=== PATIENT | female | born 1940 | race Caucasian/White ===

== ENCOUNTER → 2016-10-02 | Outpatient (CLI) | payer OTHER ==
[~2016-10-02] MED LIST: ASCA500 PO; ASPEC81 PO; BUSP-8 PO; CLTP PO; CLX20 PO; CMD25 PO; FRRG PO; LISI-461 PO; OMEG10007 PO; PRLSR20 PO; RANI300T2 PO; SIMV40TA2 PO; VITA400C15 PO
--- NOTE | 2016-10-02 11:03 | DIAGNOSTIC IMAGING REPORT ---
CHEST 2 VIEWS ROUTINE CLINICAL HISTORY: Fatigue, shortness of breath. COMPARISON STUDY: No previous studies for comparison. FINDINGS: The heart is at the upper limits of normal in size. There is mild aortic tortuosity. There is no failure. There is no focal pulmonary consolidation. There are no pleural effusions.[ IMPRESSION: No active disease in the chest. Electronically signed by: Yfian Noonan M.D. 10/02/2016 11:01 AM Dictated Date/Time: 10/02/2016 11:01 AM
== END | disposition home or self-care (01) ==
LOC: C.RAD 10:44
PROVIDERS: ATTEND Physician Assistant Medical
DX: R06.02 Shortness of breath (principal); R53.81 Other malaise; R53.83 Other fatigue

== ENCOUNTER → 2016-11-15 | Outpatient (CLI) | payer OTHER ==
--- NOTE | 2016-11-15 13:32 | MAMMOGRAPHY REPORT ---
BILATERAL DIGITAL SCREENING MAMMOGRAM WITH CAD: 11/15/2016 CLINICAL HISTORY: Routine screening. Patient has no complaints. TECHNIQUE: Bilateral CC and MLO views were obtained. Current study was also evaluated with a Compute r Aided Detection (CAD) system. COMPARISON: Comparison is made to exams dated: 11/10/2015 mammogram, 11/07/2014 mammogram, 09/18/2012 m ammogram, 09/15/2011 mammogram, 09/10/2009 mammogram - [facility], and 09/09/2008. BREAST COMPOSITION: There are scattered areas of fibroglandular density in both breasts. FINDINGS: A linear scar marker overlies the left upper outer quadrant. There are scattered and group ed faint punctate microcalcifications throughout the right breast, that a been stable on prior mammog sebastian dating back to at least 09/10/2009, therefore likely benign. No new suspicious mass, architectu ral distortion or cluster of suspicious microcalcifications is seen. IMPRESSION: ACR BI-RADS CATEGORY 1: NEGATIVE There is no mammographic evidence of malignancy. A 1 year screening mammogram is recommended. The pa tient will receive written notification of the results. Approximately 10% of breast cancers are not detected with mammography. A negative mammographic report should not delay biopsy if a clinically suggestive mass is present. Blanca Vásquez M.D. ay/:11/15/2016 12:46:50 [employer]: Lia Gibbons, [facility] letter sent: Normal 1/2 BI-RADS Code: ACR BI-RADS Category 1: Negative
== END | disposition home or self-care (01) ==
LOC: C.MAMM 11:18
PROVIDERS: ATTEND Family Medicine
DX: Z12.31 Encounter for screening mammogram for malignant neoplasm of breast (principal)

== ENCOUNTER 2022-04-03 10:45 | Inpatient (IN) ==
--- NOTE | 2022-04-03 10:57 | Emergency Department Note ---
Impression & Plan Altered mental status, Hypertension, Encephalopathy acute, Slurred speech ED Provider Note Name: RICHARD PEDRAZA Age: 81 Sex: F Arrives Via: Ambulance Informant: Family/EMS ED Provider: Mendez Dey MD Chief Complaint: Stroke Symptoms Impression: As Per Impressions above Medical Decision Makin-year-old female arrives for evaluation of confusion and slurred speech. Patient has a history of COPD, hypertension, anxiety/depression, GERD, DLP. Patient initially was reported to have a last known well 9:30 AM. However after multiple discussions with primary family contacts it appears she has been confused since at least not last night if not gradually worsening over the last week. At this point it was felt that she is not a TNKase candidate. On examination she had does have slurred speech she is confused but she has no other neurologic deficits. Patient essentially seems a bit encephalopathic. Her blood pressure is not significantly elevated point where she requires emergent lowering given its essentially staying in the 170s over 90s periodically going higher than periodically going lower. She was mildly hypoxic on room air I wonder if this may be slight aspiration though chest x-ray is unremarkable. COVID flu is negative. CT of the head with angio of the head and neck are negative. Labs are unremarkable there is no clear evidence of infectious etiology. I do not feel that LP is indicated this time as she exhibits no meningeal signs by examination. I do not a clear etiology of this encephalopathy. That said patient is maintaining airway she is looking around the room otherwise stable. I discussed the case with the hospitalist who evaluated further and bring her in for further management. Prior Medical Record and Triage/Nursing Notes reviewed by Me Additional history obtained from chart and family Differentials:Infection, hypoglycemia, electrolyte abnormalities, overdose, toxicologic, cardiac sources, intracerebral event, neurologic, trauma, as well as other pathologies. Vital Signs: reviewed and remarkable for hypertension, hypoxia Interventions: zofran 4mg iv Labs:Reviewed and remarkable for no significant abnormalities Imagin view chest x-ray no acute findings as per radiology. CT of the head without and CT angio of the head and neck as per radiology no acute findings. EKG:Per My Interpretation: Indication Weakness: NSR 68 bpm, qtc 497. No Ectopy. No Ischemia. Compared to EKG 09/11/18, no significant changes. Consults:Dr Sadi Fernandes Neuro - brief discussion though given info that had been obtained before call back stroke alert cancelled. Dr Theresa BARNHART Hospitalist Plan: Disposition:Hospitalization. Condition: Fair History of Present Illness:81-year-old female arrives for evaluation of confusion. Patient last known well probably several days ago but at least was definitively confused this morning. Her sister had been on the phone with around 9:00 and due to the severe confusion she called 911. Patient according to the son is just not been her normal self last few days as it is. He is unsure of any falls or injuries other than some falls a few months ago. Patient was stopped her blood pressure meds a few weeks ago because of reported falls. No medications prior to arrival. EMS notes she was hypertensive. Patient had a blood sugar 106 for EMS. ROS: Unable to obtain due to patient confusion Past Medical History:COPD, hypertension, anxiety/depression, GERD, dyslipidemia Past Surgical History:See Below Family History:See Below Social History:See Below Home Medications:See Below Allergies:See Below Vitals:Blood Pressure: 175/94, Pulse 70, RR 16, T 36.8C, O2 98% on RA Physical Exam: GENERAL: Patient is confused appearing and in minimal distress. EYES: No scleral icterus, unremarkable pupils. ENT: Mucous membranes moist, no nasal congestion. NECK: No masses appreciated, nomeningismus, trachea is midline. RESPIRATORY: No dyspnea. Clear to auscultation and equal bilaterally. No wheeze, no rhonchi. CARDIOVASCULAR: Regular rate and rhythm.No murmurs, rubs, gallops appreciated. GASTROINTESTINAL: Abdomen soft, non-tender, no peritonitis.Bowel sounds positive.No masses appreciated. BACK: No midline tenderness, no CVA tenderness EXTREMITIES: Normal motion all extremities, no cyanosis, no edema. NEUROLOGIC: Confused, looking around room, unintelligible speech, no acute motor or sensory deficits, no focal weakness, cranial nerves grossly intact. SKIN: No rash, no jaundice, no diaphoresis. ED Course: Times/Reassessments: 10:35am: EMS call and stroke alert was activated following this. 10:40am: I discussed case at the phone loose with the patient's daughter who notes that she was not involved but was on her way to the hospital. 10:44am: Patient arrived via EMS and taken directly to CAT scan 10:45 AM I discussed the case with Divya patient's sister who notes that patient was confused when she had called her at 9 AM. I rediscussed the case at 10:50 AM after having lost connection via the phone. 10:50 AM decision not to give TNKase given patient has clearly been outside the window at this point. 10:52 AM discussed the case with Matrín the patient's son who notes she is actually been a bit confused over the last few days if not last week. 10:[address] Avitia called of [place] [facility] and given the ongoing confusion for over 12 to 24 hours no focal neurologic deficits she would not be a tPA candidate nor do I feel she is a large vessel occlusion. Critical Care: I have personally spent 35 minutes of critical care time in the direct management of this patient. Acute stroke alert for slurred speech and activation of stroke team with consideration and eventual determination not to give thrombolytic. This was a life/limb threatening event. This 35 minutes is in excess of all separately billable procedures. 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 GERD (gastroesophageal reflux disease) Hyperlipemia Hypertension Osteoarthritis Osteopenia Surgical History History of arthroscopy of right shoulder History of benign breast biopsy History of cardiac cath > 10 YEARS AGO - [facility] - ABN STRESS TEST - NO STENTS/ANGIOPLASTY History of cataract surgery Bilateral History of colonoscopy History of esophagogastroduodenoscopy (EGD) History of tonsillectomy History of tooth extraction History of total abdominal hysterectomy and bilateral salpingo-oophorectomy History of total hip arthroplasty LT Family History Mother Myocardial infarction Father Emphysema/COPD Other No family history of adverse response to anesthesia No pertinent family history Social History Smoking Status: Former smoker Second Hand Exposure: Yes (as a child); Hx Alcohol Use: Yes Alcohol type: wine Hx Substance Use: No Preferred Language: Georgian Communication Ability: Effective Box Sorter Required: No Beliefs That Will Affect Care: None Current Living Situation: Alone Feels Safe at Home: Yes Assistive Devices: Denture - Lower and Glasses Allergies Allergies Allergy/AdvReac Type Severity Reaction Status Date / Time clarithromycin Allergy Intermediate HIVES Verified 01/17/22 14:59 Penicillins Allergy Intermediate HANDS Verified 01/17/22 14:59 SWELLING lisinopril Allergy Mild Unknown Verified 01/17/22 14:59 Home Meds Home Medications Medication Instructions Recorded Confirmed amlodipine 2.5 mg tablet 2.5 mg PO QPM 07/23/18 04/03/22 citalopram 10 mg tablet 10 mg PO QAM 07/23/18 04/03/22 omeprazole 20 mg tablet,delayed 20 mg PO QAM 07/23/18 04/03/22 release simvastatin 20 mg tablet 40 mg PO PM 07/23/18 04/03/22 Previous Rx's Medication Instructions Recorded fluticasone propionate 50 1 spray intranasal DAILY #3 BTLS 11/24/21 mcg/actuation nasal spray,suspension (Allergy Relief (fluticasone)) levocetirizine 5 mg tablet 5 mg PO DAILY PRN allergy symptoms 11/24/21 #90 tabs umeclidinium 62.5 mcg-vilanterol 1 inh inhalation DAILY #3 Inhalers 11/24/21 25 mcg/actuation powdr for inhalation (Anoro Ellipta) Flutter Valve #1 ea 01/17/22 albuterol sulfate 90 mcg/actuation 2 puff inhalation Q6H PRN 01/17/22 aerosol inhaler Shortness Of Breath Or Wheezing #18 grams guaifenesin 600 mg tablet, 600 mg PO BID PRN congestion #60 01/17/22 extended release 12 hr (Mucinex) tabs Results & Data (ED) Vital Signs Vital Signs - 24 hr 04/03/22 11:05 04/03/22 11:47 Temperature 36.8 C Temperature Source Temporal Artery Scan Pulse Rate 66 Pulse Rate [Apical] 62 Respiratory Rate 18 18 Blood Pressure 180/83 H Blood Pressure [Left Arm] 177/90 H Blood Pressure Mean 115 Blood Pressure Mean [Left Arm] 119 Pulse Oximetry 98 89 L Oxygen Delivery Method Room Air Room Air Sepsis Recent Fever Within 48 Hours No Sepsis New/Unexplained Change in Mental Status Yes Sepsis Action Taken by Nursing No Action Required Laboratory Data Result diagrams: 04/03/22 10:58 04/03/22 10:58 Lab Results 04/03/22 04/03/22 04/03/22 Range/Units 10:58 10:58 10:58 WBC 6.46 (4.8-10.8) K/ul RBC 3.94 (3.93-5.22) M/uL Hgb 11.6 L (12.0-16.0) g/dl Hct 33.8 L (34.1-44.9) % MCV 85.8 (80.0-100.0) fL MCH 29.4 (25.0-34.0) pg MCHC 34.3 (32.0-36.0) g/dL RDW Std Deviation 40.6 (36.4-46.3) fL RDW Coeff of Elliott 13.0 (11.5-14.5) % Plt Count 266 (130-400) K/uL MPV 8.8 L (9.4-12.3) fL Immature Gran % (Auto) 0.3 % Neut % (Auto) 47.1 % Lymph % (Auto) 39.6 % [place] % (Auto) 11.1 % Eos % (Auto) 1.1 % Baso % (Auto) 0.8 % Neut # (Auto) 3.04 (1.4-6.5) K/uL Lymph # (Auto) 2.56 (1.2-3.4) K/uL [place] # (Auto) 0.72 (0.24-0.82) K/uL Eos # (Auto) 0.07 (0-0.50) K/uL Baso # (Auto) 0.05 (0-0.2) K/uL Immature Gran # (Auto) 0.02 (0.00-0.02) K/uL ESR (0-30) mm/hr PT 12.3 H (9.0-12.0) Seconds INR 1.2 H (0.9-1.1) APTT 25.1 (21.0-31.0) Seconds PTT Ratio 0.9 Sodium (136-145) mmol/L Potassium (3.5-5.1) mmol/L Chloride (98-107) mmol/L Carbon Dioxide (21-32) mmol/L Anion Gap (3-11) BUN (6-23) mg/dl Creatinine (0.6-1.2) mg/dl Est Cr Clr Drug Dosing ml/min Est GFR ( Amer) ml/min Est GFR (Non-Af Amer) ml/min BUN/Creatinine Ratio (10-20) Glucose (70-99(Fasting)) mg/dl Calcium (8.5-10.1) mg/dl Ionized Calcium (1.12-1.32) mmol/L Magnesium (1.7-2.4) mg/dl Total Bilirubin (0.2-1.0) mg/dl AST (13-39) U/L ALT (7-52) U/L Alkaline Phosphatase (34-104) U/L Troponin I High Sens (0-14) pg/ml C-Reactive Protein (0-0.5) mg/dl Total Protein (6.0-8.3) gm/dl Albumin (3.4-5.0) gm/dl Globulin (2.5-4.0) gm/dl Albumin/Globulin Ratio (0.9-2) Lipase (11-82) U/L Procalcitonin (0-0.5) ng/ml Urine Color Urine Appearance (Clear) Urine pH (4.5-7.5) Ur Specific [place] (1.000-1.030) Urine Protein (Negative) Urine Glucose (UA) (Negative) Urine Ketones (Negative) Urine Blood (Negative) Urine Nitrite (Negative) Urine Bilirubin (Negative) Urine Urobilinogen (Negative) Ur Leukocyte Esterase (Negative) SARS-CoV-2 (PCR) (Negative) Influenza Type A (PCR) (Neg) Influenza Type B (PCR) (Neg) RSV (RT-PCR) (Neg) Blood Type A Positive Antibody Screen NEGATIVE 04/03/22 04/03/22 04/03/22 Range/Units 10:58 10:58 10:58 WBC (4.8-10.8) K/ul RBC (3.93-5.22) M/uL Hgb (12.0-16.0) g/dl Hct (34.1-44.9) % MCV (80.0-100.0) fL MCH (25.0-34.0) pg MCHC (32.0-36.0) g/dL RDW Std Deviation (36.4-46.3) fL RDW Coeff of Elliott (11.5-14.5) % Plt Count (130-400) K/uL MPV (9.4-12.3) fL Immature Gran % (Auto) % Neut % (Auto) % Lymph % (Auto) % [place] % (Auto) % Eos % (Auto) % Baso % (Auto) % Neut # (Auto) (1.4-6.5) K/uL Lymph # (Auto) (1.2-3.4) K/uL [place] # (Auto) (0.24-0.82) K/uL Eos # (Auto) (0-0.50) K/uL Baso # (Auto) (0-0.2) K/uL Immature Gran # (Auto) (0.00-0.02) K/uL ESR (0-30) mm/hr PT (9.0-12.0) Seconds INR (0.9-1.1) APTT (21.0-31.0) Seconds PTT Ratio Sodium 137 (136-145) mmol/L Potassium 3.3 L (3.5-5.1) mmol/L Chloride 105 (98-107) mmol/L Carbon Dioxide 23 (21-32) mmol/L Anion Gap 9 (3-11) BUN 9 (6-23) mg/dl Creatinine 0.74 (0.6-1.2) mg/dl Est Cr Clr Drug Dosing 63.4 ml/min Est GFR ( Amer) 89.3 ml/min Est GFR (Non-Af Amer) 77.1 ml/min BUN/Creatinine Ratio 12.2 (10-20) Glucose 94 (70-99(Fasting)) mg/dl Calcium 8.2 L (8.5-10.1) mg/dl Ionized Calcium (1.12-1.32) mmol/L Magnesium 1.4 L (1.7-2.4) mg/dl Total Bilirubin 0.7 (0.2-1.0) mg/dl AST 15 (13-39) U/L ALT 9 (7-52) U/L Alkaline Phosphatase 49 (34-104) U/L Troponin I High Sens 5.3 (0-14) pg/ml C-Reactive Protein (0-0.5) mg/dl Total Protein 5.7 L (6.0-8.3) gm/dl Albumin 3.7 (3.4-5.0) gm/dl Globulin 2.0 L (2.5-4.0) gm/dl Albumin/Globulin Ratio 1.9 (0.9-2) Lipase 13 (11-82) U/L Procalcitonin < 0.05 (0-0.5) ng/ml Urine Color Urine Appearance (Clear) Urine pH (4.5-7.5) Ur Specific [place] (1.000-1.030) Urine Protein (Negative) Urine Glucose (UA) (Negative) Urine Ketones (Negative) Urine Blood (Negative) Urine Nitrite (Negative) Urine Bilirubin (Negative) Urine Urobilinogen (Negative) Ur Leukocyte Esterase (Negative) SARS-CoV-2 (PCR) (Negative) Influenza Type A (PCR) (Neg) Influenza Type B (PCR) (Neg) RSV (RT-PCR) (Neg) Blood Type Antibody Screen 04/03/22 04/03/22 04/03/22 Range/Units 10:58 11:20 11:40 WBC (4.8-10.8) K/ul RBC (3.93-5.22) M/uL Hgb (12.0-16.0) g/dl Hct (34.1-44.9) % MCV (80.0-100.0) fL MCH (25.0-34.0) pg MCHC (32.0-36.0) g/dL RDW Std Deviation (36.4-46.3) fL RDW Coeff of Elliott (11.5-14.5) % Plt Count (130-400) K/uL MPV (9.4-12.3) fL Immature Gran % (Auto) % Neut % (Auto) % Lymph % (Auto) % [place] % (Auto) % Eos % (Auto) % Baso % (Auto) % Neut # (Auto) (1.4-6.5) K/uL Lymph # (Auto) (1.2-3.4) K/uL [place] # (Auto) (0.24-0.82) K/uL Eos # (Auto) (0-0.50) K/uL Baso # (Auto) (0-0.2) K/uL Immature Gran # (Auto) (0.00-0.02) K/uL ESR 5 (0-30) mm/hr PT (9.0-12.0) Seconds INR (0.9-1.1) APTT (21.0-31.0) Seconds PTT Ratio Sodium (136-145) mmol/L Potassium (3.5-5.1) mmol/L Chloride (98-107) mmol/L Carbon Dioxide (21-32) mmol/L Anion Gap (3-11) BUN (6-23) mg/dl Creatinine (0.6-1.2) mg/dl Est Cr Clr Drug Dosing ml/min Est GFR ( Amer) ml/min Est GFR (Non-Af Amer) ml/min BUN/Creatinine Ratio (10-20) Glucose (70-99(Fasting)) mg/dl Calcium (8.5-10.1) mg/dl Ionized Calcium (1.12-1.32) mmol/L Magnesium (1.7-2.4) mg/dl Total Bilirubin (0.2-1.0) mg/dl AST (13-39) U/L ALT (7-52) U/L Alkaline Phosphatase (34-104) U/L Troponin I High Sens (0-14) pg/ml C-Reactive Protein (0-0.5) mg/dl Total Protein (6.0-8.3) gm/dl Albumin (3.4-5.0) gm/dl Globulin (2.5-4.0) gm/dl Albumin/Globulin Ratio (0.9-2) Lipase (11-82) U/L Procalcitonin (0-0.5) ng/ml Urine Color Yellow Urine Appearance Clear (Clear) Urine pH 7.0 (4.5-7.5) Ur Specific [place] 1.023 (1.000-1.030) Urine Protein Negative (Negative) Urine Glucose (UA) Negative (Negative) Urine Ketones Negative (Negative) Urine Blood Negative (Negative) Urine Nitrite Negative (Negative) Urine Bilirubin Negative (Negative) Urine Urobilinogen Negative (Negative) Ur Leukocyte Esterase Negative (Negative) SARS-CoV-2 (PCR) NEGATIVE (Negative) Influenza Type A (PCR) Negative (Neg) Influenza Type B (PCR) Negative (Neg) RSV (RT-PCR) Negative (Neg) Blood Type Antibody Screen 04/03/22 04/03/22 Range/Units 12:40 13:11 WBC (4.8-10.8) K/ul RBC (3.93-5.22) M/uL Hgb (12.0-16.0) g/dl Hct (34.1-44.9) % MCV (80.0-100.0) fL MCH (25.0-34.0) pg MCHC (32.0-36.0) g/dL RDW Std Deviation (36.4-46.3) fL RDW Coeff of Elliott (11.5-14.5) % Plt Count (130-400) K/uL MPV (9.4-12.3) fL Immature Gran % (Auto) % Neut % (Auto) % Lymph % (Auto) % [place] % (Auto) % Eos % (Auto) % Baso % (Auto) % Neut # (Auto) (1.4-6.5) K/uL Lymph # (Auto) (1.2-3.4) K/uL [place] # (Auto) (0.24-0.82) K/uL Eos # (Auto) (0-0.50) K/uL Baso # (Auto) (0-0.2) K/uL Immature Gran # (Auto) (0.00-0.02) K/uL ESR (0-30) mm/hr PT (9.0-12.0) Seconds INR (0.9-1.1) APTT (21.0-31.0) Seconds PTT Ratio Sodium (136-145) mmol/L Potassium (3.5-5.1) mmol/L Chloride (98-107) mmol/L Carbon Dioxide (21-32) mmol/L Anion Gap (3-11) BUN (6-23) mg/dl Creatinine (0.6-1.2) mg/dl Est Cr Clr Drug Dosing ml/min Est GFR ( Amer) ml/min Est GFR (Non-Af Amer) ml/min BUN/Creatinine Ratio (10-20) Glucose (70-99(Fasting)) mg/dl Calcium (8.5-10.1) mg/dl Ionized Calcium 1.17 (1.12-1.32) mmol/L Magnesium (1.7-2.4) mg/dl Total Bilirubin (0.2-1.0) mg/dl AST (13-39) U/L ALT (7-52) U/L Alkaline Phosphatase (34-104) U/L Troponin I High Sens (0-14) pg/ml C-Reactive Protein < 0.50 (0-0.5) mg/dl Total Protein (6.0-8.3) gm/dl Albumin (3.4-5.0) gm/dl Globulin (2.5-4.0) gm/dl Albumin/Globulin Ratio (0.9-2) Lipase (11-82) U/L Procalcitonin (0-0.5) ng/ml Urine Color Urine Appearance (Clear) Urine pH (4.5-7.5) Ur Specific [place] (1.000-1.030) Urine Protein (Negative) Urine Glucose (UA) (Negative) Urine Ketones (Negative) Urine Blood (Negative) Urine Nitrite (Negative) Urine Bilirubin (Negative) Urine Urobilinogen (Negative) Ur Leukocyte Esterase (Negative) SARS-CoV-2 (PCR) (Negative) Influenza Type A (PCR) (Neg) Influenza Type B (PCR) (Neg) RSV (RT-PCR) (Neg) Blood Type Antibody Screen Administered Medications Discontinued Medications Magnesium Sulfate/Dextrose (Magnesium Sulfate / D5w) 1 gm in 100 mls @ 100 mls/hr IV NOW STA Stop: 04/03/22 12:35 Last Infusion: 04/03/22 12:45 Dose: 0 mls/hr Documented By: Admin: 04/03/22 11:45 Dose: 100 mls/hr Documented By: DEBRA Ioversol (Optiray 320 500ml) 120 ml IV ONCE ONE Stop: 04/03/22 11:01 Last Admin: 04/03/22 11:00 Dose: 120 ml Documented By: PRIYANKA Ondansetron HCl (Ondansetron Inj 2 Mg/Ml 2 Ml Vial) 4 mg IV NOW STA Stop: 04/03/22 11:07 Last Admin: 04/03/22 11:12 Dose: 4 mg Documented By: DEBRA Imaging Data Radiologist's Impression: Head CT 04/03/22 10:38 CT head/brain wo con CLINICAL HISTORY: 81 years-old Female with neuro deficit, acute stroke suspected. Acute strokelike symptoms TECHNIQUE: Multiple axial CT images of the head were obtained without contrast. A dose lowering technique was utilized adhering to the principles of ALARA. COMPARISON: CTA head and neck of same day, head CT 02/07/2022 FINDINGS: No acute intracranial hemorrhage, midline shift, intracranial mass, hydrocep halus, territorial ischemia or abnormal extra-axial collection. Involutional changes with ex vacuo ventriculomegaly. Cerebral vascular calcifications. White matter hypodensities suggestive of chronic microvascular ischemic disease. The calvarium is intact. Small left mastoid effusion. Right mastoid air cells and paranasal sinuses are clear. Unremarkable soft tissues. Prior bilateral lens repair. IMPRESSION: No acute intracranial abnormality. ACT 112: Negative or not required by law. The above report was generated using voice recognition software. It may contain grammatical, syntax or spelling errors. Electronically signed by: Surendra Barriga M.D. 04/03/2022 11:07 AM Head CTA 04/03/22 10:38 CT angio head w con, CT angio neck with con CLINICAL HISTORY: 81 years-old Female with neuro deficit, acute stroke lin spected. Acute strokelike symptoms COMPARISON STUDY: Head CT of same day TECHNIQUE: Following the IV administration of 120 cc of Optiray, CT angiogram of the head and neck was performed from the aortic arch to the skull apex. Images are reviewed in the axial, sagittal, and coronal planes. 3-D MIPS images are created and assessed. IV contrast was administered without complication. All measurements were obtained according to NASCET criteria. A dose lowering technique was utilized adhering to the principles of ALARA. CT DOSE: 1142.79 mGy.cm FINDINGS: Atherosclerosis of the thoracic aorta. There is patency of the innominate and imaged subclavian arteries. The common carotid arteries are w idely patent. Motion degraded exam. Mild atherosclerotic plaque of the carotid bulbs without significant stenosis. Additional atherosclerotic plaque is noted within the cavernous and clinoid segments of the internal carotid arteries without high-grade narrowing. The middle and anterior cerebral arteries are patent. Dominant right vertebral artery. Markedly diminutive left vertebral artery. No definite flow identified within the 1 segment of the majority of the V2 segment. Patent AV 3 and V4 segments. Basilar and posterior cerebral arteries are patent. origin of the right posterior cerebral artery. There is mild multifocal luminal narrowing of the posterior cerebral arteries. The cerebral venous sinuses are suboptimally evaluated, likely secondary to contrast bolus timing. Heterogeneity within the cerebral venous sinuses may be secondary to mixing artifact. No abnormal intracranial enhancement. No pneumothorax. Unremarkable soft tissues. Degenerative changes of the cervical spine. IMPRESSION: Unremarkable CTA of the head and neck. No aneurysm, dissection, high-grade stenosis or arterial occlusion identified. ACT 112: Negative or not required by law. The above report was generated using voice recognition software. It may contain grammatical, syntax or spelling errors. Electronically signed by: Surendra Barriga M.D. 04/03/2022 11:07 AM Neck CTA 04/03/22 10:38 CT angio head w con, CT angio neck with con CLINICAL HISTORY: 81 years-old Female with neuro deficit, acute stroke suspe cted. Acute strokelike symptoms COMPARISON STUDY: Head CT of same day TECHNIQUE: Following the IV administration of 120 cc of Optiray, CT angiogram of the head and neck was performed from the aortic arch to the skull apex. Images are reviewed in the axial, sagittal, and coronal planes. 3-D MIPS images are created and assessed. IV contrast was administered without complication. All measurements were obtained according to NASCET criteria. A dose lowering technique was utilized adhering to the principles of ALARA. CT DOSE: 1142.79 mGy.cm FINDINGS: Atherosclerosis of the thoracic aorta. There is patency of the innominate and imaged subclavian arteries. The common carotid arteries are wide ly patent. Motion degraded exam. Mild atherosclerotic plaque of the carotid bulbs without significant stenosis. Additional atherosclerotic plaque is noted within the cavernous and clinoid segments of the internal carotid arteries without high-grade narrowing. The middle and anterior cerebral arteries are patent. Dominant right vertebral artery. Markedly diminutive left vertebral artery. No definite flow identified within the 1 segment of the majority of the V2 segment. Patent AV 3 and V4 segments. Basilar and posterior cerebral arteries are patent. origin of the right posterior cerebral artery. There is mild multifocal luminal narrowing of the posterior cerebral arteries. The cerebral venous sinuses are suboptimally evaluated, likely secondary to contrast bolus timing. Heterogeneity within the cerebral venous sinuses may be secondary to mixing artifact. No abnormal intracranial enhancement. No pneumothorax. Unremarkable soft tissues. Degenerative changes of the cervical spine. IMPRESSION: Unremarkable CTA of the head and neck. No aneurysm, dissection, high-grade stenosis or arterial occlusion identified. ACT 112: Negative or not required by law. The above report was generated using voice recognition software. It may contain grammatical, syntax or spelling errors. Electronically signed by: Surendra Barriga M.D. 04/03/2022 11:07 AM Chest X-Ray 04/03/22 11:23 XR chest 1V portable HISTORY: 81 years-old Female Confusion, vomiting acute chest pain with nausea and vomiting COMPARISON: 01/28/2022 TECHNIQUE: AP view of the chest FINDINGS: Cardiac silhouette is enlarged. Mild right hemidiaphragmatic elevation. There is no pneumothorax, pleural effusion, airspace consolidation or overt pulmonary edema. Degenerative changes of the shoulders and 9. IMPRESSION: No acute process. ACT 112: Negative or not required by law. The above report was generated using voice recognition software. It may contain grammatical, syntax or spelling errors. Electronically signed by: Surendra Barriga M.D. 04/03/2022 11:55 AM Discharge Plan Visit Data Chief Complaint: Stroke Alert Stated Complaint: STROKE SX ED Provider: Mendez Dey Discharge Problem: Altered mental status, Hypertension, Encephalopathy acute, Slurred speech Forms Stand Alone Forms: [facility] [employer] Prescriptions Prescriptions: No Action fluticasone propionate [Allergy Relief (fluticasone)] 50 mcg/actuation spray,suspension 1 spray intranasal DAILY Qty: 3 1RF Rx Instructions: administer into each nostril once daily levocetirizine 5 mg tablet 5 mg PO DAILY PRN (Reason: allergy symptoms) Qty: 90 1RF Rx Instructions: Take daily for 10 days then PRN Anoro Ellipta 62.5-25 mcg/actuation blister with device 1 inh inhalation DAILY Qty: 3 1RF albuterol sulfate 90 mcg/actuation HFA aerosol inhaler 2 puff inhalation Q6H PRN (Reason: Shortness Of Breath Or Wheezing) Qty: 18 3RF (DME) Flutter Valve Device See Rx Instructions .MEDSUPPLY Qty: 1 0RF Rx Instructions: Use it every 6 hours when awake. guaifenesin [Mucinex] 600 mg tablet extended release 12hr 600 mg PO BID PRN (Reason: congestion) Qty: 60 1RF Rx Instructions: Take 1 tab p.o. twice a day for 7 days and then as needed citalopram 10 mg Tablet 10 mg PO QAM amlodipine 2.5 mg Tablet 2.5 mg PO QPM simvastatin 20 mg Tablet 40 mg PO PM omeprazole 20 mg Tablet,Delayed Release (Dr/Ec) 20 mg PO QAM Referrals Referrals: Inge Ibarra DO [Resident] - : Altered mental status Qualifiers: Altered mental status type: unspecified Qualified Code(s): R41.82 - Altered mental status, unspecified Hypertension Qualifiers: Hypertension type: unspecified Qualified Code(s): I10 - Essential (primary) hypertension
[2022-04-03] MEDS ORDERED: OPTIRAY 320 500ml IV ONE (11:00)
[2022-04-03] MEDS ORDERED: ONDANSETRON INJ 2 MG/ML 2 ML VIAL IV STA (11:06)
--- NOTE | 2022-04-03 11:08 | CT Scan Report ---
CT angio head w con, CT angio neck with con CLINICAL HISTORY: 81 years-old Female with neuro deficit, acute stroke suspected. Acute strokelike symptoms COMPARISON STUDY: Head CT of same day TECHNIQUE: Following the IV administration of 120 cc of Optiray, CT angiogram of the head and neck wa s performed from the aortic arch to the skull apex. Images are reviewed in the axial, sagittal, and c oronal planes. 3-D MIPS images are created and assessed. IV contrast was administered without complic ation. All measurements were obtained according to NASCET criteria. A dose lowering technique was uti lized adhering to the principles of ALARA. CT DOSE: 1142.79 mGy.cm FINDINGS: Atherosclerosis of the thoracic aorta. There is patency of the innominate and imaged subcla vian arteries. The common carotid arteries are widely patent. Motion degraded exam. Mild atherosclero tic plaque of the carotid bulbs without significant stenosis. Additional atherosclerotic plaque is no keon within the cavernous and clinoid segments of the internal carotid arteries without high-grade monster rowing. The middle and anterior cerebral arteries are patent. Dominant right vertebral artery. Marked ly diminutive left vertebral artery. No definite flow identified within the 1 segment of the majority of the V2 segment. Patent AV 3 and V4 segments. Basilar and posterior cerebral arteries are patent. origin of the right posterior cerebral artery. There is mild multifocal luminal narrowing of th e posterior cerebral arteries. The cerebral venous sinuses are suboptimally evaluated, likely seconda ry to contrast bolus timing. Heterogeneity within the cerebral venous sinuses may be secondary to mix ing artifact. No abnormal intracranial enhancement. No pneumothorax. Unremarkable soft tissues. Degenerative changes of the cervical spine. IMPRESSION: Unremarkable CTA of the head and neck. No aneurysm, dissection, high-grade stenosis or ar terial occlusion identified. ACT 112: Negative or not required by law. The above report was generated using voice recognition software. It may contain grammatical, syntax o r spelling errors. Electronically signed by: Surendra Barriga M.D. 04/03/2022 11:07 AM
--- NOTE | 2022-04-03 11:08 | CT Scan Report ---
CT head/brain wo con CLINICAL HISTORY: 81 years-old Female with neuro deficit, acute stroke suspected. Acute strokelike s ymptoms TECHNIQUE: Multiple axial CT images of the head were obtained without contrast. A dose lowering tech nique was utilized adhering to the principles of ALARA. COMPARISON: CTA head and neck of same day, head CT 02/07/2022 FINDINGS: No acute intracranial hemorrhage, midline shift, intracranial mass, hydrocephalus, territorial ischem ia or abnormal extra-axial collection. Involutional changes with ex vacuo ventriculomegaly. Cerebral vascular calcifications. White matter hypodensities suggestive of chronic microvascular ischemic dise ase. The calvarium is intact. Small left mastoid effusion. Right mastoid air cells and paranasal sinuses are clear. Unremarkable soft tissues. Prior bilateral lens repair. IMPRESSION: No acute intracranial abnormality. ACT 112: Negative or not required by law. The above report was generated using voice recognition software. It may contain grammatical, syntax o r spelling errors. Electronically signed by: Surendra Barriga M.D. 04/03/2022 11:07 AM
[2022-04-03 11:09] LABS: Basophils # (auto) 0.05 K/uL (0-0.2); Basophils % (auto) 0.8 %; Eosinophils # (auto) 0.07 K/uL (0-0.50); Eosinophils % (auto) 1.1 %; Hematocrit (blood only) 33.8 % (34.1-44.9); Hemoglobin 11.6 g/dl (12.0-16.0); Immature Granulocytes # (auto) 0.02 K/uL (0.00-0.02); Immature Granulocytes % (auto) 0.3 %; Lymphocytes # (auto) 2.56 K/uL (1.2-3.4); Lymphocytes % (auto) 39.6 %; Mean Corpuscular Hemoglobin 29.4 pg (25.0-34.0); Mean Corpuscular Hgb Conc 34.3 g/dL (32.0-36.0); Mean Corpuscular Volume 85.8 fL (80.0-100.0); Mean Platelet Volume 8.8 fL (9.4-12.3); Monocytes # (auto) 0.72 K/uL (0.24-0.82); Monocytes % (auto) 11.1 %; Neutrophils # (auto) 3.04 K/uL (1.4-6.5); Neutrophils % (auto) 47.1 %; Platelet Count 266 K/uL (130-400); RDW Standard Deviation 40.6 fL (36.4-46.3); Red Blood Count 3.94 M/uL (3.93-5.22); White Blood Count 6.46 K/ul (4.8-10.8)
[2022-04-03 11:21] LABS: INR 1.2 (0.9-1.1); Partial Thromboplastin Ratio 0.9; Partial Thromboplastin Time 25.1 Seconds (21.0-31.0); Prothrombin Time 12.3 Seconds (9.0-12.0)
[2022-04-03 11:29] LABS: Appearance Urine Clear (Clear); Bilirubin Urine Negative (Negative); Blood Urine Negative (Negative); Color Urine Yellow; Glucose Urine UA Negative (Negative); Ketones Urine Negative (Negative); Leukocyte Esterase Urine Negative (Negative); Nitrite Urine Negative (Negative); Protein Urine Negative (Negative); Specific Gravity Urine 1.023 (1.000-1.030); Urobilinogen Urine Negative (Negative)
[2022-04-03 11:31] LABS: Albumin Globulin Ratio 1.9 (0.9-2); Albumin Level 3.7 gm/dl (3.4-5.0); BUN Creatinine Ratio 12.2 (10-20); Bilirubin,Total 0.7 mg/dl (0.2-1.0); Calcium 8.2 mg/dl (8.5-10.1); Creatinine Clr Calc Pharmacy 63.4 ml/min; Est GFR (African American) 89.3 ml/min; Est GFR (Non-African American) 77.1 ml/min; Magnesium 1.4 mg/dl (1.7-2.4); Potassium 3.3 mmol/L (3.5-5.1); Total Protein 5.7 gm/dl (6.0-8.3)
[2022-04-03 11:36] LABS: Troponin I High Sensitivity 5.3 pg/ml (0-14)
[2022-04-03] MEDS ORDERED: MAGNESIUM SULFATE / D5W 1 GM/100 ML BAG IV STA (11:36)
--- NOTE | 2022-04-03 11:57 | XRay Report ---
XR chest 1V portable HISTORY: 81 years-old Female Confusion, vomiting acute chest pain with nausea and vomiting COMPARISON: 01/28/2022 TECHNIQUE: AP view of the chest FINDINGS: Cardiac silhouette is enlarged. Mild right hemidiaphragmatic elevation. There is no pneumothorax, ple ural effusion, airspace consolidation or overt pulmonary edema. Degenerative changes of the shoulders and 9. IMPRESSION: No acute process. ACT 112: Negative or not required by law. The above report was generated using voice recognition software. It may contain grammatical, syntax o r spelling errors. Electronically signed by: Surendra Barriga M.D. 04/03/2022 11:55 AM
[2022-04-03 12:21] LABS: Influenza A virus by PCR Negative (Neg); Influenza B virus by PCR Negative (Neg); RSV by PCR Negative (Neg); SARS CoV2 RNA(COVID-19) Ceph NEGATIVE (Negative)
--- NOTE | 2022-04-03 12:50 | History & Physical Report ---
Date of Service April 03, 2022 Assessment & Plan (1) Encephalopathy acute: Plan: - Patient presented as a stroke alert with confusion and slurred speech noted on the phone around 9 AM this morning, however family notes patient has been intermittently confused over the past week, therefore LKW unable to be defined. - Given unknown LKW, patient deemed not a candidate for TNKase. - CT head, CTA head/neck unremarkable for acute process such as hemorrhage, infarct, mass. - Currently unsure of exact cause, a stroke is in the differential given hypertension and hyperlipidemia as risk factors, but also keeping differential wide, considering thyroid crisis, infection with her shaking, pursed lip breathing, AMS. No leukocytosis, or procal elevation--viral encephalopathy? - No history of liver disease. - CT abd/pelvis, lactate, ESR, CRP, ammonia level, resp biofire, blood cultures, TSH, ABG, UDS, EtOH added to labs. Continue routine stroke w/u: - MRI, routine, today or tomorrow. - Echo in a.m. - CBC, BMP, HbA1c, lipid panel in a.m. - N.p.o. for now. - PT, OT, ST to evaluate today/tomorrow. - Avoid hypotension, hypoglycemia. - Patient already on statin, will switch to high intensity statin. - Telemetry for 24 hours, evaluate for episodes of atrial fibrillation. - Currently holding all PO meds, can resume when able to tolerate PO. 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 - PFTs December 2021: No obstructive lung dysfunction, insignificant bronchodilator response, normal TLC with very severe decrease in ERV, mild decrease in DLCO. - Mildly hypoxic at 89% on room air, CXR unremarkable for acute disease process. - Continue home inhalers. Mucinex, flutter valve as needed. - Continue levocetirizine, Flonase or allergic rhinitis. - SPO2 goal 88-92%. - Multiple pulmonary nodules being followed pulmonology, 3 mm right middle lobe and 4 mm in left lower lobe, stable since 2014 and per pulm, does not require follow-up. - Ex-smoker, [id number] smoking history quit in 1999. (3) Hypertension: Plan: - Previously on amlodipine, discontinued this 1 month ago due to frequent falls. - BP on arrival 180/83, repeat 177/90. 183/107 during my visit. - Given concern for stroke, will rule out degree of hypertension over the next 24 hours, however tomorrow recommend reinitiating BP meds. - If she has a stroke, certainly hypertension could have been a risk factor, as well as hyperlipidemia. - Although she is quite hypertensive, do not think that this is hypertensive encephalopathy causing the confusion. (4) Hyperlipemia: Plan: - Continue statin, will switch to high-intensity statin. (5) Depression: Plan: - Depression with anxiety. - Continue Celexa when able to tolerate PO. (6) GERD (gastroesophageal reflux disease): Plan: - Continue PPI daily, switch omeprazole to pantoprazole per hospital formulary when able to tolerate PO. (7) Hypomagnesemia: Plan: - 1.4, replete and recheck in AM. 1 g ordered in ED, additional 2 g ordered for 4. (8) Hypokalemia: Plan: - 3.3, will replete and recheck in AM. (9) Hypocalcemia: Plan: - Dudley 8.2, iCal wnl at 1.17. Plan - Admit to PCU. - SCDs, Lovenox for VTE PPx. - Full code. History of Present Illness Chief Complaint: confusion, slurred speech unknown amount of time/stroke arrival to ED Primary Care Provider: NO PCP Yanet Gomez is a 81-year-old female with a past medical history significant for COPD, hypertension, hyperlipidemia, anxiety, depression, and GERD who is presenting today as a stroke alert. Patient not alert to provide history, so it is entirely collected from ED provider and her 2 children at bedside. They report that the patient was on the phone with her sister this morning and who noticed she was slurring her speech and having difficulty communicating. At 1 point, the patient was apparently trying to tell her sister that she lost her vision, unsure if in 1 or both eyes, however was only speak in 1-2 words at a time just seems so severely confused that she called 911. On presentation to the emergency room her deficits include slurred speech and confusion, she is actively moving all 4 extremities and moving from side to side in the bed, with mild tachypnea, can open her eyes and occasionally respond to commands such as raising her arm up. Her son reports he saw her Eri and she was alert and oriented like she typically is, however when it was time for her to drive home instead of getting right in the car, she walked around her van for several loops kicking at the gravel which she noted to be odd, however she drove home and had been well up until this morning. Her daughter, at bedside saw her Monday and noted her to be in her usual state of health. She did recently stopped her blood pressure medications a few weeks ago due to history of falls. No prior history of stroke or brain bleed. On presentation to the ED she is hypertensive 180/83, other vital signs within normal limits. CT head, CTA head/neck unremarkable for any evidence of ischemia, hemorrhage, or mass. Labs are largely unremarkable hemoglobin slightly low at 11.6, INR 1.2. Glucose on arrival 106. She is without a white count, marked anemia, deranged coag panel, elevated lipase, liver enzymes, or impaired renal function. Her magnesium, calcium, and potassium are all mildly low. Her UA does not appear infected, she is COVID/flu/RSV negative. Allergies Allergy/AdvReac Type Severity Reaction Status Date / Time clarithromycin Allergy Intermediate HIVES Verified 01/17/22 14:59 Penicillins Allergy Intermediate HANDS Verified 01/17/22 14:59 SWELLING lisinopril Allergy Mild Unknown Verified 01/17/22 14:59 Home Medications Medication Instructions Recorded Confirmed Type amlodipine 2.5 mg tablet 2.5 mg PO QPM 07/23/18 04/03/22 History citalopram 10 mg tablet 10 mg PO QAM 07/23/18 04/03/22 History omeprazole 20 mg tablet,delayed 20 mg PO QAM 07/23/18 04/03/22 History release simvastatin 20 mg tablet 40 mg PO PM 07/23/18 04/03/22 History fluticasone propionate 50 1 spray intranasal DAILY #3 BTLS 11/24/21 04/03/22 Rx mcg/actuation nasal spray,suspension (Allergy Relief (fluticasone)) levocetirizine 5 mg tablet 5 mg PO DAILY PRN allergy symptoms 11/24/21 04/03/22 Rx #90 tabs umeclidinium 62.5 mcg-vilanterol 1 inh inhalation DAILY #3 Inhalers 11/24/21 04/03/22 Rx 25 mcg/actuation powdr for inhalation (Anoro Ellipta) Flutter Valve #1 ea 01/17/22 01/17/22 Rx albuterol sulfate 90 mcg/actuation 2 puff inhalation Q6H PRN 01/17/22 04/03/22 Rx aerosol inhaler Shortness Of Breath Or Wheezing #18 grams guaifenesin 600 mg tablet, 600 mg PO BID PRN congestion #60 01/17/22 04/03/22 Rx extended release 12 hr (Mucinex) tabs Past Med/Surg History Medical History Anxiety Arrhythmia 30 YEARS AGO - NO ISSUES - NO [employer]PUT[employer]GRAM[employer]ING [employer]GER Depression GERD (gastroesophageal reflux disease) Hyperlipemia Hypertension Osteoarthritis Osteopenia Surgical History History of arthroscopy of right shoulder History of benign breast biopsy History of cardiac cath > 10 [address] A[address] - [facility] - ABN STRESS TEST - NO STENTS/ANGIOPLASTY History of cataract surgery Bilateral History of colonoscopy History of esophagogastroduodenoscopy (EGD) History of tonsillectomy History of tooth extraction History of total abdominal hysterectomy and bilateral salpingo-oophorectomy History of total hip arthroplasty LT Family History Mother Myocardial infarction Father Emphysema/COPD Other No family history of adverse response to anesthesia No pertinent family history Social History Smoking Status: Former smoker Second Hand Exposure: Yes (as a child); Hx Alcohol Use: No Hx Substance Use: No Preferred Language: Maori Communication Ability: Effective Morgue Librarian Required: No Beliefs That Will Affect Care: None Current Living Situation: Alone Other Information That Helps Us Care for You: No Feels Safe at Home: Yes Assistive Devices: Cane and Walker Review of Systems Review of Systems: Unobtainable due to reduced consciousness Physical Exam Physical Exam: General: Alert, but not oriented to place/person/time, occasionally can follow commands, opens eyes, moves head to voice Head: Normocephalic, atraumatic ENT: PERRL, EOMI, no pharyngeal exudate, mucous membranes moist Chest: Clear to auscultation, on room air, no adventitious breath sounds Cardiac: Regular rate and rhythm, no murmur, no JVD, normal peripheral pulses, good capillary refill Abdominal: NABS x 4 quadrants, soft, nontender to palpation, no rebound, guarding or tenderness Extremities: Normal inspection, no peripheral edema or erythema, calfs nontender to palpation Psych: Normal mood and affect Neuro: AAO x 3, strength intact bilaterally and rated 5/5, no motor deficits, speech is clear, no peripheral sensory deficits Skin: no rash or erythema Results & Data Results & Data ([facility]) Vital Signs (Past 12 Hours) Vital Signs Temp Pulse Pulse Resp BP BP Pulse Ox 04/03/22 11:47 62 18 177/90 H 89 L 04/03/22 11:05 36.8 C 66 18 180/83 H 98 O2 Del Method 04/03/22 11:47 Room Air 04/03/22 11:05 Room Air Laboratory Results Abnormal lab results 04/03/22 04/03/22 04/03/22 Range/Units 10:58 10:58 10:58 Hgb 11.6 L (12.0-16.0) g/dl Hct 33.8 L (34.1-44.9) % MPV 8.8 L (9.4-12.3) fL PT 12.3 H (9.0-12.0) Seconds INR 1.2 H (0.9-1.1) Potassium 3.3 L (3.5-5.1) mmol/L Calcium 8.2 L (8.5-10.1) mg/dl Magnesium 1.4 L (1.7-2.4) mg/dl Total Protein 5.7 L (6.0-8.3) gm/dl Globulin 2.0 L (2.5-4.0) gm/dl Diagnostic Findings Head CT 04/03/22 10:38 CT head/brain wo con CLINICAL HISTORY: 81 years-old Female with neuro deficit, acute stroke suspected. Acute strokelike symptoms TECHNIQUE: Multiple axial CT images of the head were obtained without contrast. A dose lowering technique was utilized adhering to the principles of ALARA. COMPARISON: CTA head and neck of same day, head CT 02/07/2022 FINDINGS: No acute intracranial hemorrhage, midline shift, intracranial mass, hydrocephalus, territorial ischemia or abnormal extra-axial collection. Involutional changes with ex vacuo ventriculomegaly. Cerebral vascular calcifications. White matter hypodensities suggestive of chronic microvascular ischemic disease. The calvarium is intact. Small left mastoid effusion. Right mastoid air cells and paranasal sinuses are clear. Unremarkable soft tissues. Prior bilateral lens repair. IMPRESSION: No acute intracranial abnormality. ACT 112: Negative or not required by law. The above report was generated using voice recognition software. It may contain grammatical, syntax or spelling errors. Electronically signed by: Surendra Barriga M.D. 04/03/2022 11:07 AM Head CTA 04/03/22 10:38 CT angio head w con, CT angio neck with con CLINICAL HISTORY: 81 years-old Female with neuro deficit, acute stroke suspected. Acute strokelike symptoms COMPARISON STUDY: Head CT of same day TECHNIQUE: Following the IV administration of 120 cc of Optiray, CT angiogram of the head and neck was performed from the aortic arch to the skull apex. Images are reviewed in the axial, sagittal, and coronal planes. 3-D MIPS images are created and assessed. IV contrast was administered without complication. All measurements were obtained according to NASCET criteria. A dose lowering technique was utilized adhering to the principles of ALARA. CT DOSE: 1142.79 mGy.cm FINDINGS: Atherosclerosis of the thoracic aorta. There is patency of the innominate and imaged subclavian arteries. The common carotid arteries are widely patent. Motion degraded exam. Mild atherosclerotic plaque of the carotid bulbs without significant stenosis. Additional atherosclerotic plaque is noted within the cavernous and clinoid segments of the internal carotid arteries w ithout high-grade narrowing. The middle and anterior cerebral arteries are patent. Dominant right vertebral artery. Markedly diminutive left vertebral artery. No definite flow identified within the 1 segment of the majority of the V2 segment. Patent AV 3 and V4 segments. Basilar and posterior cerebral arteries are patent. origin of the right posterior cerebral artery. There is mild multifocal luminal narrowing of the posterior cerebral arteries. The cerebral venous sinuses are suboptimally evaluated, likely secondary to contrast bolus timing. Heterogeneity within the cerebral venous sinuses may be secondary to mixing artifact. No abnormal intracranial enhancement. No pneumothorax. Unremarkable soft tissues. Degenerative changes of the cervical spine. IMPRESSION: Unremarkable CTA of the head and neck. No aneurysm, dissection, high-grade stenosis or arterial occlusion identified. ACT 112: Negative or not required by law. The above report was generated using voice recognition software. It may contain grammatical, syntax or spelling errors. Electronically signed by: Surendra Barriga M.D. 04/03/2022 11:07 AM Neck CTA 04/03/22 10:38 CT angio head w con, CT angio neck with con CLINICAL HISTORY: 81 years-old Female with neuro deficit, acute stroke suspected. Acute strokelike symptoms COMPARISON STUDY: Head CT of same day TECHNIQUE: Following the IV administration of 120 cc of Optiray, CT angiogram of the head and neck was performed from the aortic arch to the skull apex. Images are reviewed in the axial, sagittal, and coronal planes. 3-D MIPS images are created and assessed. IV contrast was administered without complication. All measurements were obtained according to NASCET criteria. A dose lowering technique was utilized adhering to the principles of ALARA. CT DOSE: 1142.79 mGy.cm FINDINGS: Atherosclerosis of the thoracic aorta. There is patency of the innominate and imaged subclavian arteries. The common carotid arteries are widely patent. Motion degraded exam. Mild atherosclerotic plaque of the carotid bulbs without significant stenosis. Additional atherosclerotic plaque is noted within the cavernous and clinoid segments of the internal carotid arteries without high-grade narrowing. The middle and anterior cerebral arteries are patent. Dominant right vertebral artery. Markedly diminutive left vertebral artery. No definite flow identified within the 1 segment of the majority of the V2 segment. Patent AV 3 and V4 segments. Basilar and posterior cerebral arteries are patent. origin of the right posterior cerebral artery. There is mild multifocal luminal narrowing of the posterior cerebral arteries. The cerebral venous sinuses are suboptimally evaluated, likely secondary to contrast bolus timing. Heterogeneity within the cerebral venous sinuses may be secondary to mixing artifact. No abnormal intracranial enhancement. No pneumothorax. Unremarkable soft tissues. Degenerative changes of the cervical spine. IMPRESSION: Unremarkable CTA of the head and neck. No aneurysm, dissection, high-grade stenosis or arterial occlusion identified. ACT 112: Negative or not required by law. The above report was generated using voice recognition software. It may contain grammatical, syntax or spelling errors. Electronically signed by: Surendra Barriga M.D. 04/03/2022 11:07 AM Chest X-Ray 04/03/22 11:23 XR chest 1V portable HISTORY: 81 years-old Female Confusion, vomiting acute chest pain with nausea and vomiting COMPARISON: 01/28/2022 TECHNIQUE: AP view of the chest FINDINGS: Cardiac silhouette is enlarged. Mild right hemidiaphragmatic elevation. There is no pneumothorax, pleural effusion, airspace consolidation or overt pulmonary edema. Degenerative changes of the shoulders and 9. IMPRESSION: No acute process. ACT 112: Negative or not required by law. The above report was generated using voice recognition software. It may contain grammatical, syntax or spelling errors. Electronically signed by: Surendra Barriga M.D. 04/03/2022 11:55 AM ECG Additional Comments: Normal sinus rhythm Nonspecific ST and T wave abnormality Prolonged QT Abnormal ECG When compared with ECG of 11-SEP-2018 17:07, Premature supraventricular complexes are no longer Present WA interval has decreased. Code Status & VTE Plan Code Status Full code. Supervising Physician Co-Signing Physician Notes I personally saw and examined the patient. I verified all garza points and agree with Catherine Staley PA-C with the following exceptions and/or additions: 81 year old female presents with acute confusion and aphasia. Appeared to have a similar event on Monday lasted an hour at her sons house but completely resolved after about an hour. Unclear what medications she is currently taking but was recently taken off anti-hypertensives per family due to recurrent falls. No suspected need for sleeping pills. Low suspicion she overdosed on citalopram O/E Patient is acutely confused and not able to follow commands, not orientated x3, not talking, HS1+2, no murmurs, Chest CTAB, Abdo SNT, hyper-reflexes b/l UE biceps/triceps LE knee/ankles, increased tone b/l equal A/P Acute encephalopathy - extensive workup for infective cause negative, low suspicion of TIA/CVA given generalized symptoms, hyper-reflexia suggests [facility] pathology, if persistent would consider lumbar puncture but low suspicion of meningitis given normal inflammatory markers, ?hypertensive encephalopathy PG Care Time/CCT Total # of Minutes Spent Total Time Spent with Patient: Total time spent is greater than 50% in coordination of care (as documented) at patient's floor/unit and/or counseling patient: Coding Level of Care Code 35536 Initial Inpt Care Lvl 3 Diagnoses Encephalopathy acute G93.40 COPD with emphysema J43.9 Hypertension I10 Hyperlipemia E78.5 Depression F32.9 GERD (gastroesophageal reflux disease) K21.9 Hypomagnesemia E83.42 Hypokalemia E87.6 Hypocalcemia E83.51
[2022-04-03] MEDS ORDERED: OPTIRAY 350 100ml IV ONE (14:43)
[2022-04-03 15:02] LABS: Amphetamines+Metham, Urine Neg (Neg); Barbiturates, Urine Neg (Neg); Benzodiazepine, Urine Neg (Neg); Cocaine, Urine Neg (Neg); MDMA (Ecstacy), Urine Neg (Neg); Methadone, Urine Neg (Neg); Opiate, Urine Neg (Neg); Phencyclidine, Urine Neg (Neg)
--- NOTE | 2022-04-03 15:40 | CT Scan Report ---
ABDOMEN AND PELVIS CT WITH IV CONTRAST CT DOSE: 479.30 mGy.cm HISTORY: Acute generalized abdominal pain ? infection TECHNIQUE: Multiaxial CT images of the abdomen and pelvis were performed following the IV administrat ion of 86 cc of Optiray, A dose lowering technique was utilized adhering to the principles of ALARA. COMPARISON STUDY: CTA chest 09/11/2018 FINDINGS: Limited exam secondary to upper extremity positioning and respiratory motion. Moderate card iomegaly. Clear lung bases. No pneumatosis or pneumoperitoneum. Unremarkable spleen, pancreas, gallbl adder, adrenal glands and liver. Patency of the hepatic and portal veins. Delayed phase of imaging demonstrates no abnormality of the kidneys. The opacified renal collecting s ystems are within normal limits. A Larson catheter is noted within the urinary bladder. Air within the bladder lumen is likely secondary to instrumentation. Suggestion of a small posterior bladder divert iculum. Hysterectomy. Atherosclerosis of the aorta and branch vessels without aneurysm or dissection. No lymphadenopathy identified. Small hiatal hernia. There is moderate rectal fecal retention. Colonic diverticulosis without acute d iverticulitis. Normal appendix. No ascites or mesenteric inflammation. Unremarkable soft tissues. Lef t hip total joint arthroplasty. 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 IMPRESSION: 1. No acute intra-abdominal or intrapelvic abnormality. 2. Moderate rectal fecal retention. 3. Colonic diverticulosis. 4. Small hiatal hernia. 5. Avascular necrosis of the right femoral head with areas of associated articular collapse. ACT 112: Negative or not required by law. The above report was generated using voice recognition software. It may contain grammatical, syntax o r spelling errors. Electronically signed by: Surendra Barriga M.D. 04/03/2022 3:38 PM
[2022-04-03 16:27] LABS: Adenovirus PCR Not Detected (NotDetected); Bordetella parapertussis PCR Not Detected (NotDetected); Bordetella pertussis PCR Not Detected (NotDetected); Chlamydia pneumoniae PCR Not Detected (NotDetected); Coronavirus 229E PCR Not Detected (NotDetected); Coronavirus CoV-2 (COVID19)PCR Not Detected (NotDetected); Coronavirus HKU1 PCR Not Detected (NotDetected); Coronavirus NL63 PCR Not Detected (NotDetected); Coronavirus OC43PCR Not Detected (NotDetected); Human Metapneumovirus PCR Not Detected (NotDetected); Influenza A PCR Not Detected (NotDetected); Influenza B PCR Not Detected (NotDetected); Mycoplasma pneumoniae PCR Not Detected (NotDetected); Parainfluenza Virus 1 PCR Not Detected (NotDetected); Parainfluenza Virus 2 PCR Not Detected (NotDetected); Parainfluenza Virus 3 PCR Not Detected (NotDetected); Parainfluenza Virus 4 PCR Not Detected (NotDetected); Respiratory Syncytial VirusPCR Not Detected (NotDetected); Rhinovirus/Enterovirus PCR Not Detected (NotDetected)
[2022-04-03] MEDS ORDERED: PHARMACIST DISCHARGE MED REC CONSULT PRN (16:41)
[2022-04-03] MEDS ORDERED: POTASSIUM CHLORIDE / WTR 10 MEQ/100 ML PLCT IV ONE (16:41)
[2022-04-03] MEDS ORDERED: POLYETHYLENE (MIRALAX) 17 GM PACK PO PRN (16:41)
[2022-04-03 17:17] LABS: Thyroid Stimulating Hormone 5.355 uIu/ml (0.300-4.500)
[2022-04-03] MEDS: LACTATED RINGER'S 1,000 ML IV SCH (17:37)
[2022-04-03] MEDS: MAGNESIUM SULFATE / D5W 1 GM/100 ML BAG IV SCH ×2 (17:39→18:51)
[2022-04-03 17:52] LABS: T4 Free Thyroxine 1.03 ng/dl (0.61-1.60)
[2022-04-03] MEDS: ENOXAPARIN INJ 40 MG/0.4 ML SYR SQ SCH (18:49)
[2022-04-03] MEDS: POTASSIUM CHLORIDE CRTAB 20 MEQ TABCR PO SCH (20:26)
[2022-04-04] MEDS: LACTATED RINGER'S 1,000 ML IV SCH (06:31)
--- NOTE | 2022-04-04 06:34 | Electrocardiogram Report ---
Test Reason : Blood Pressure : / mmHG Vent. Rate : 068 BPM Atrial Rate : 068 BPM P-R Int : 176 ms QRS Dur : 086 ms QT Int : 468 ms P-R-T Axes : 018 001 -09 degrees QTc Int : 497 ms Normal sinus rhythm Nonspecific ST and T wave abnormality Prolonged QT Abnormal ECG When compared with ECG of 11-SEP-2018 17:07, Premature supraventricular complexes are no longer Present MN interval has decreased Confirmed by Toño Sanchez ([id number]) on 04/04/2022 6:34:28 AM Referred By: REFERRED SELF Confirmed By:Toño Sanchez
[2022-04-04 08:04] LABS: Basophils # (auto) 0.03 K/uL (0-0.2); Basophils % (auto) 0.3 %; Hematocrit (blood only) 34.1 % (34.1-44.9); Hemoglobin 11.4 g/dl (12.0-16.0); Immature Granulocytes # (auto) 0.03 K/uL (0.00-0.02); Immature Granulocytes % (auto) 0.3 %; Lymphocytes # (auto) 2.02 K/uL (1.2-3.4); Lymphocytes % (auto) 22.1 %; Mean Corpuscular Hemoglobin 29.2 pg (25.0-34.0); Mean Corpuscular Hgb Conc 33.4 g/dL (32.0-36.0); Mean Corpuscular Volume 87.4 fL (80.0-100.0); Mean Platelet Volume 8.9 fL (9.4-12.3); Monocytes # (auto) 1.28 K/uL (0.24-0.82); Neutrophils # (auto) 5.79 K/uL (1.4-6.5); Neutrophils % (auto) 63.3 %; Platelet Count 269 K/uL (130-400); RDW Coefficient of Variation 13.4 % (11.5-14.5); White Blood Count 9.15 K/ul (4.8-10.8)
--- NOTE | 2022-04-04 08:29 | Magnetic Resonance Report ---
MRI OF THE BRAIN WITHOUT CONTRAST CLINICAL HISTORY: Falls. Confusion. Speech disturbance. Evaluate for stroke. COMPARISON STUDY: Head CT and CTA of the head April 03, 2022 TECHNIQUE: Utilizing a 1.5 Sis magnet and dedicated coil, multiplanar, multiecho imaging of the bra in was performed without IV contrast. FINDINGS: This exam is mildly compromised by motion artifact. However, there are no foci of restricte d diffusion to suggest acute infarct. No acute intracranial hemorrhage, midline shift or mass effect is present. Mild dilatation of lateral ventricles is likely due to central atrophy. Basilar cisterns are patent. There are no extra-axial collections. Flow-voids for the major intracranial vessels are p resent. No intracranial masses are identified on this unenhanced exam. Periventricular white matter T 2 hyperintense foci favor small vessel disease. IMPRESSION: No acute intracranial findings. ACT 112: Negative or not required by law. Electronically signed by: Manuel Lundberg M.D. 04/04/2022 8:28 AM
[2022-04-04 08:34] LABS: BUN Creatinine Ratio 11.6 (10-20); Calcium 8.4 mg/dl (8.5-10.1); Chol HDL Ratio 3.4 (0-5); Creatinine Clr Calc Pharmacy 48.2 ml/min; Est GFR (African American) 74.5 ml/min; Est GFR (Non-African American) 64.3 ml/min; Potassium 3.3 mmol/L (3.5-5.1)
--- NOTE | 2022-04-04 08:34 | XCELERA ---
[id number]
[2022-04-04] MEDS ORDERED: ASPIRIN 81 MG ECTAB PO SCH (09:00)
[2022-04-04] MEDS ORDERED: ATORVASTATIN 40 MG TAB PO SCH (09:00)
[2022-04-04 10:07] LABS: iSTAT Arterial Blood Gas HCO3 21 meg/L (19-24); iSTAT Arterial Blood Gas pCO2 27 mmHg (35-46); iSTAT Arterial Blood Gas pO2 80 mmHg (80-95); iSTAT Carbon Dioxide 22 mmol/L (24-31); iSTAT Hematocrit 38 % (37-47); iSTAT Hemoglobin 12.9 g/dl (12.0-16.0); iSTAT Sodium 137 mmol/L (135-144)
[2022-04-04 10:16] LABS: Estimated Average Glucose 111 mg/dl; Hemoglobin A1C 5.5 % (4.5-5.6)
[2022-04-04] MEDS: POTASSIUM CHLORIDE CRTAB 20 MEQ TABCR PO SCH ×2 (10:29→20:21)
[2022-04-04] MEDS: UMECLIDINIUM/VILANTEROL 62.5/25MCG 7 PUFFS/INHALER INH SCH (10:30)
[2022-04-04] MEDS ORDERED: PANTOprazole 40 MG in SYRINGE 0 ML IV SCH (11:00)
[2022-04-04] MEDS: ACETAMINOPHEN 325 MG TAB PO PRN (12:28)
[2022-04-04] MEDS: CITALOPRAM 20 MG TAB PO SCH (13:26)
[2022-04-04 14:23] LABS: A calco-baum cmplx NotReported Not Detected (NotDetected); Bact fragilis Not Reported Not Detected (NotDetected); C auris Not Reported Not Detected (NotDetected); Calbicans Not Reported Not Detected (NotDetected); Candida glabrata Not Reported Not Detected (NotDetected); Candida krusei Not Reported Not Detected (NotDetected); Cneoformans/gatti Not Reported Not Detected (NotDetected); Cparapsilosis Not Reported Not Detected (NotDetected); Ctropicalis Not Reported Not Detected (NotDetected); E cloacae compx Not Reported Not Detected (NotDetected); Efaecalis Not Reported Not Detected (NotDetected); Efaecium Not Reported Not Detected (NotDetected); Enterobacterales Not Reported Not Detected (NotDetected); Escherichia coli Not Reported Not Detected (NotDetected); H influenzae Not Reported Not Detected (NotDetected); K aerogenes Not Reported Not Detected (NotDetected); Koxytoca Not Reported Not Detected (NotDetected); Kpneumoniae grp Not Reported Not Detected (NotDetected); Lmonocyt Not Reported Not Detected (NotDetected); N meningitidis Not Reported Not Detected (NotDetected); P aeruginosa Not Reported Not Detected (NotDetected); Proteus spp Not Reported Not Detected (NotDetected); Salmonella spp Not Reported Not Detected (NotDetected); Smarcescens Not Reported Not Detected (NotDetected); Staph lugdunensis Not Reported Not Detected (NotDetected); Staph spp. Not Reported DETECTED (NotDetected); Staphaureus Not Reported Not Detected (NotDetected); Staphepi Not Reported Not Detected (NotDetected); Staphylococcus spp. DETECTED (NotDetected); Stenmaltophilia Not Reported Not Detected (NotDetected); Strep agal(GrpB) Not Reported Not Detected (NotDetected); Strep pneum Not Reported Not Detected (NotDetected); Strep pyog (GrpA) Not Reported Not Detected (NotDetected); Strep spp Not Reported Not Detected (NotDetected)
[2022-04-04] MEDS: ENOXAPARIN INJ 40 MG/0.4 ML SYR SQ SCH (16:57)
--- NOTE | 2022-04-04 18:04 | Neurology Consultation ---
Date of Consultation April 04, 2022 Assessment & Plan (1) Encephalopathy acute: (2) Hypertension: Plan Patient's encephalopathy appears to be resolved at this point although she may have had hypertensive encephalopathy. I also see that her blood cultures and PCR testing revealed gram-positive cocci, I am not sure if this finding is clinically significant. Underlying systemic infectious etiology may not be completely excluded. There is no evidence of acute or subacute stroke on her MRI although she does have chronic microvascular ischemic disease and generalized atrophy. No evidence of significant vascular lesion on CT angiography of the head or neck. TIA cannot be completely excluded. She does not have any signs or symptoms that would suggest meningoencephalitis at this time. Her clinical presentation is not highly suggestive of seizure disorder. Would recommend continued medical management of patient's hypertension, systolic blood pressure goal 140 to 160 mmHg acutely. No need for lumbar puncture or EEG at this point in time. Given the possibility of TIA in this case, it would not be unreasonable to continue with daily low-dose aspirin. Continue with simvastatin. Consider obtaining 2 to 4-week 30-day mobile cardiac outpatient telemetry. No further immediate recommendations. History of Present Illness Reason for Consultation: recurrent encephalopathy Requesting Physician: Andrés Cardenas MD Attending Physician: Andrés Cardenas MD History of Present Illness The patient is a 81-year-old female who presented to the emergency department yesterday for further assessment of confusion and slurred speech. Past medical history notable for hypertension and COPD. Family had expressed concern regarding progressive confusion over the previous week. She was felt to have mild dysarthria and mild confusion during her initial assessment in the emergency department but otherwise was nonfocal. She was hypertensive and mildly hypoxic. COVID and influenza testing were negative. CT angiography of the head and neck were unremarkable. CT of the head was negative for hemorrhage or acute abnormality. A brain MRI was also negative for acute abnormality. I did independently reviewed these images. No abnormal areas of restricted diffusion to suggest acute or subacute stroke. There is generalized atrophy and chronic microvascular ischemic change best depicted on coronal FLAIR and axial T2 sequences. 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 Currently, patient appears to be neurologically intact, she is pleasant and appropriate, no signs of encephalopathy or focal deficits. She denies headache, fever, or history of seizures. Allergies Allergy/AdvReac Type Severity Reaction Status Date / Time clarithromycin Allergy Intermediate HIVES Verified 01/17/22 14:59 Penicillins Allergy Intermediate HANDS Verified 01/17/22 14:59 SWELLING lisinopril Allergy Mild Unknown Verified 01/17/22 14:59 Home Medications Medication Instructions Recorded Confirmed Type amlodipine 2.5 mg tablet 2.5 mg PO QPM 07/23/18 04/03/22 History citalopram 10 mg tablet 10 mg PO QAM 07/23/18 04/03/22 History omeprazole 20 mg tablet,delayed 20 mg PO QAM 07/23/18 04/03/22 History release simvastatin 20 mg tablet 40 mg PO PM 07/23/18 04/03/22 History fluticasone propionate 50 1 spray intranasal DAILY #3 BTLS 11/24/21 04/03/22 Rx mcg/actuation nasal spray,suspension (Allergy Relief (fluticasone)) levocetirizine 5 mg tablet 5 mg PO DAILY PRN allergy symptoms 11/24/21 04/03/22 Rx #90 tabs umeclidinium 62.5 mcg-vilanterol 1 inh inhalation DAILY #3 Inhalers 11/24/21 04/03/22 Rx 25 mcg/actuation powdr for inhalation (Anoro Ellipta) Flutter Valve #1 ea 01/17/22 01/17/22 Rx albuterol sulfate 90 mcg/actuation 2 puff inhalation Q6H PRN 01/17/22 04/03/22 Rx aerosol inhaler Shortness Of Breath Or Wheezing #18 grams guaifenesin 600 mg tablet, 600 mg PO BID PRN congestion #60 01/17/22 04/03/22 Rx extended release 12 hr (Mucinex) tabs Patient History Medical History Anxiety Arrhythmia 30 YEARS AGO - NO ISSUES - 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 Depression GERD (gastroesophageal reflux disease) Hyperlipemia Hypertension Osteoarthritis Osteopenia Surgical History History of arthroscopy of right shoulder History of benign breast biopsy History of cardiac cath > 10 YEARS AGO - [facility] - ABN STRESS TEST - NO STENTS/ANGIOPLASTY History of cataract surgery Bilateral History of colonoscopy History of esophagogastroduodenoscopy (EGD) History of tonsillectomy History of tooth extraction History of total abdominal hysterectomy and bilateral salpingo-oophorectomy History of total hip arthroplasty LT Family History Mother Myocardial infarction Father Emphysema/COPD Other No family history of adverse response to anesthesia No pertinent family history Social History Smoking Status: Former smoker Second Hand Exposure: Yes (as a child); Hx Alcohol Use: No Hx Substance Use: No Preferred Language: Yoruba Communication Ability: Effective Commercial Litigation Paralegal Required: No Beliefs That Will Affect Care: None Current Living Situation: Alone Other Information That Helps Us Care for You: No Feels Safe at Home: Yes Assistive Devices: Cane and Walker Review of Systems Constitutional: no fever and no chills Eyes: no blind spots and no diplopia Ear, Nose, Mouth, Throat: no ear pain and no hearing loss Respiratory: + dyspnea Cardiovascular: no chest pain and no palpitations Gastrointestinal: no nausea and no vomiting Genitourinary: no dysuria Musculoskeletal: no myalgia Integumentary: no rash and no lesions Neurologic: as per Subjective / HPI Psychiatric: no depression and no anxiety Hematologic / Lymphatic: no easy bleeding and no easy bruising Exam (Neuro) Constitutional: well developed and well nourished; no acute distress Eyes: normal visual gutierrez by confrontation, PERRL, normal accommodation and EOM intact bilaterally; no fundoscopic abnormality, no nystagmus and no papilledema Cardiovascular: Vessels: normal carotid upstroke; no carotid bruit Neurologic: Oriented to:: Person, Place and Time Memory: Short Term Intact and Remote Intact Attention: Span Intact and Concentration Intact Language: Naming Objects and Repeating Phrases Speech Fluency: negative Dysarthria Speech Aphasia: negative Aphasia Fund of Knowledge: Current Events, Past History and Vocabulary Cranial Nerves: Normal II (Visual gutierrez full to confrontation, visual acuity normal), III, IV, (Pupils equal round reactive to light and accommodation, eye movements normal), V (Facial sensation intact), VII (There is no facial droop or weakness), VIII (Hearing intact), IX, X (Palate elevates to midline), XI (Shoulder shrug intact) and XII (Tongue protrudes to midline) Motor Strength: Normal Lower Extremities and Normal Upper Extremities; negative Pronator Drift Motor Tone: Normal Lower Extremities and Normal Upper Extremities Muscle Bulk/Involuntary Movements: No Involuntary Movements; negative Muscle Atrophy Sensation: Light Touch Intact, Pain/Temperature Intact, Vibration Intact and Proprioception Intact Coordination: Normal; negative Limited Balance, Dysdiadochokinesia, Finger-Nose Abnormal or Heel-Solis Abnormal Deep Tendon Reflexes: Rt Triceps: 2+, Lt Triceps: 2+, Rt Biceps: 2+, Lt Biceps: 2+, Rt Brachioradialis: 2+, Lt Brachioradialis: 2+, Rt Patellar: 2+, Lt Patellar: 2+, Rt Ankle: 2+ and Lt Ankle: 2+ Special Tests: negative Babinski Present Details: Gait not evaluated in the context of patient's current neurological status. Results & Data ([facility]) Vital Signs (Past 12 Hours) Vital Signs Temp Pulse Resp BP Pulse Ox Pulse Ox Pulse Ox 04/04/22 15:41 36.6 C 77 16 162/73 H 96 04/04/22 15:19 95 04/04/22 12:41 36.7 C 58 L 18 156/84 H 98 04/04/22 10:58 99 97 04/04/22 08:25 36.9 C 60 18 160/77 H 99 Pulse Ox O2 Del Method O2 Flow Rate O2 Flow Rate O2 Flow Rate O2 Flow Rate 04/04/22 15:41 Room Air 04/04/22 15:19 04/04/22 12:41 Room Air 04/04/22 10:58 98 0 2 0 04/04/22 08:25 Nasal Cannula 2 Laboratory Results WBC 9.15, hemoglobin 11.4, hematocrit 34.1, platelet count 269, sodium 139, potassium 3.3, BUN 10, creatinine 0.86, glucose 98, hemoglobin A1c 5.5, calcium 8.4, magnesium 1.4, AST 15, ALT 9, ammonia 18, troponin 5.3, CRP less than 0.5, triglycerides 121, cholesterol 140, LDL 75, VLDL 24, HDL 41, TSH 5.355, free T4 1.03, thiamine level pending, urinalysis unremarkable, toxicology screen unremarkable, staphylococcal species PCR positive with serologic testing, blood cultures positive for gram-positive cocci in clusters. Diagnostic Findings CTA of the head and neck and brain MRI are as described in history of present illness, independently reviewed these images. An echocardiogram was negative for interatrial shunt, left ventricular systolic function normal, EF 55 to 60%, left ventricular wall motion normal, there is mild concentric LVH, mild aortic regurgitation, mild aortic root dilatation, mild pulmonic valvular regurgitation, mild mitral regurgitation, right ventricular systolic pressure elevated at 30 to 40 mmHg, left atrial size normal. Coding Level of Care Code 98409 Initial Inpt Care Lvl 3 Diagnoses Encephalopathy acute G93.40 Hypertension I10 Hypertension type: unspecified (1) Hypertension Hypertension type: unspecified Qualified Code(s): I10 - Essential (primary) h ypertension
--- NOTE | 2022-04-04 19:53 | Hospitalist Progress Note ---
Date of Service April 04, 2022 Assessment & Plan (1) Encephalopathy acute: Plan: Mostly resolved - Patient presented as a stroke alert with confusion and slurred speech noted on the phone around 9 AM this morning, however family notes patient has been intermittently confused over the past week, therefore LKW unable to be defined. - Given unknown LKW, patient deemed not a candidate for TNKase. - CT head, CTA head/neck unremarkable for acute process such as hemorrhage, infarct, mass. Presentation appeared much more consistent with generalized encephalopathy rather than one area for CVA/TIA Negative extensive workup for infective cause. Blood culture with 1/2 GPC I suspect is contaminant given resolution of symptoms and normal inflammatory markers and WBC Ammonia level normal. No CO2 retention. TSH level normal MRI, routine - negative for stroke TTE -no wall motion abnormalities, significant valvular disease. Right ventricular systolic pressure elevated. 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 - PFTs December 2021: No obstructive lung dysfunction, insignificant bronchodilator response, normal TLC with very severe decrease in ERV, mild decrease in DLCO. - Mildly hypoxic at 89% on room air, CXR unremarkable for acute disease process. - Continue home inhalers (of note she is not taking Anoro Ellipta at home). Mucinex, flutter valve as needed. - Continue levocetirizine, Flonase or allergic rhinitis. - SPO2 goal 88-92%. - Multiple pulmonary nodules being followed pulmonology, 3 mm right middle lobe and 4 mm in left lower lobe, stable since 2014 and per pulm, does not require follow-up. - Ex-smoker, [id number] smoking history quit in 1999. (3) Hypertension: Plan: - Previously on amlodipine, discontinued this 1 month ago due to frequent falls. - BP on arrival 180/83, repeat 177/90. 183/107 during my visit. In setting of possible hypertensive encephalopathy will likely restart amlodipine before discharge as long as she is not orthostatic (4) Hyperlipemia: Plan: - Continue simvastatin (5) Depression: Plan: - Depression with anxiety. - Continue Celexa - very low suspicion of overdose of this (6) GERD (gastroesophageal reflux disease): Plan: - Continue PPI daily, switch omeprazole to pantoprazole per hospital formulary (7) Hypomagnesemia: Plan: - 1.4 on admission. 1 g ordered in ED, additional 2 g ordered for 4. Repeat level tomorrow (8) Hypokalemia: Plan: - 3.3, continue KCL 20 meq BID and recheck in AM. (9) Recurrent falls: Plan: B12 level in AM Orthostatics Plan VTE Prophylaxis - SCDs, Lovenox Diet - heart healthy, easy to chew Code - Full code. Disposition - Admit to PCU Admission and Anticipated Discharge Date Admission Date: April 03, 2022 Subjective Symptoms almost completely resolved from yesterday. No longer encephalopathic. Alert and orientated x3. Does not have good recollection of events from yesterday and does not remember me from yesterday. She reports another event many months ago but cannot give me any specifics about this. Medications confirmed and she is not taking the amlodipine despite recently been delivered by mail order. Took off this due to falls but not definitively orthostatic. Fell off the toilet but cannot remember exactly what happened. Telemetry - no arrhythmias Review of Systems Review of Systems: All systems reviewed & are unremarkable except as noted in Subjective Physical Exam Constitutional: WD/WN, vitals as above Respiratory: normal respiratory effort and + pursed lip breathing (chronically normal for patient) Auscultation: lungs clear to auscultation bilaterally; no diminished lung sounds, no crackles, no rales, no rhonchi and no wheezes Cardiovascular: RRR, no murmur, no edema Gastrointestinal (Abdomen): normal bowel sounds, soft, nontender, no hepatosplenomegaly Musculoskeletal: no cyanosis or clubbing, extremities motor strength 5/5 Skin: no rashes, warm and dry Neurologic: moves all extremities and awake; no focal motor deficits and not confused Speech / Cognition: normal speech Motor/Sensory: no pronator drift Coordination: normal [id number] test Psychiatric: A+Ox3, euthymic affect Results & Data Results & Data ([facility]) Vital Signs (Past 12 Hours) Vital Signs Temp Pulse Resp BP Pulse Ox Pulse Ox Pulse Ox 04/04/22 15:41 36.6 C 77 16 162/73 H 96 04/04/22 15:19 95 04/04/22 12:41 36.7 C 58 L 18 156/84 H 98 04/04/22 10:58 99 97 04/04/22 08:25 36.9 C 60 18 160/77 H 99 Pulse Ox O2 Del Method O2 Flow Rate O2 Flow Rate O2 Flow Rate O2 Flow Rate 04/04/22 15:41 Room Air 04/04/22 15:19 04/04/22 12:41 Room Air 04/04/22 10:58 98 0 2 0 04/04/22 08:25 Nasal Cannula 2 PG Care Time/CCT Total # of Minutes Spent Total Time Spent with Patient: Total time spent is greater than 50% in coordination of care (as documented) at patient's floor/unit and/or counseling patient: Coding Level of Care Code 69332 Subseq Hosp Care Lvl 3 Diagnoses Encephalopathy acute G93.40 COPD with emphysema J43.9 Hypertension I10 Hyperlipemia E78.5 Depression F32.9 GERD (gastroesophageal reflux disease) K21.9 Hypomagnesemia E83.42 Hypokalemia E87.6 Recurrent falls R29.6
[2022-04-04] MEDS: SIMVASTATIN 20 MG TAB PO SCH (20:21)
[2022-04-04] MEDS ORDERED: amLODIPine BESYLATE 5 MG TAB PO SCH (21:00)
[2022-04-05 07:03] LABS: Basophils # (auto) 0.06 K/uL (0-0.2); Basophils % (auto) 1.1 %; Eosinophils # (auto) 0.11 K/uL (0-0.50); Eosinophils % (auto) 2.1 %; Hematocrit (blood only) 34.2 % (34.1-44.9); Hemoglobin 11.5 g/dl (12.0-16.0); Immature Granulocytes # (auto) 0.02 K/uL (0.00-0.02); Immature Granulocytes % (auto) 0.4 %; Lymphocytes # (auto) 1.97 K/uL (1.2-3.4); Lymphocytes % (auto) 37.5 %; Mean Corpuscular Hemoglobin 29.2 pg (25.0-34.0); Mean Corpuscular Hgb Conc 33.6 g/dL (32.0-36.0); Mean Corpuscular Volume 86.8 fL (80.0-100.0); Mean Platelet Volume 8.8 fL (9.4-12.3); Monocytes # (auto) 0.67 K/uL (0.24-0.82); Monocytes % (auto) 12.7 %; Neutrophils # (auto) 2.43 K/uL (1.4-6.5); Neutrophils % (auto) 46.2 %; Platelet Count 240 K/uL (130-400); RDW Coefficient of Variation 13.2 % (11.5-14.5); RDW Standard Deviation 41.8 fL (36.4-46.3); Red Blood Count 3.94 M/uL (3.93-5.22); White Blood Count 5.26 K/ul (4.8-10.8)
[2022-04-05 07:29] LABS: BUN Creatinine Ratio 10.9 (10-20); Calcium 8.5 mg/dl (8.5-10.1); Creatinine Clr Calc Pharmacy 45.1 ml/min; Est GFR (African American) 68.6 ml/min; Est GFR (Non-African American) 59.2 ml/min; Potassium 3.7 mmol/L (3.5-5.1)
[2022-04-05] MEDS: PANTOprazole 40 MG TAB PO SCH (08:49)
[2022-04-05] MEDS: CITALOPRAM 20 MG TAB PO SCH (08:49)
[2022-04-05] MEDS: THIAMINE HCL 100 MG TAB PO SCH (08:50)
[2022-04-05] MEDS: POTASSIUM CHLORIDE CRTAB 20 MEQ TABCR PO SCH ×2 (08:50→20:18)
[2022-04-05] MEDS: UMECLIDINIUM/VILANTEROL 62.5/25MCG 7 PUFFS/INHALER INH SCH (08:50)
[2022-04-05] MEDS: CYANOCOBALAMIN 1000 MCG/ML VIAL IM SCH (10:03)
[2022-04-05] MEDS: amLODIPine BESYLATE 5 MG TAB PO SCH (10:04)
--- NOTE | 2022-04-05 11:26 | Pharmacy Report ---
- Date of Service April 05, 2022 - Pharmacy CVA/TIA Medication Review Medications to Prevent Stroke handout has been added to the patients discharge packet. Antiplatelet(s) * ASA 81mg PO daily Cholesterol * Moderate intensity statin: simvastatin 20mg PO daily * High intensity statin deferred due to age >75 DVT Prophylaxis * Enoxaparin 40mg SQ q24h Therapeutic Anticoagulation * No history of Afib/Aflutter noted Type 2 Diabetes * Patient does not have T2DM * HbA1c: 5.5% (04/04/22)
[2022-04-05] MEDS: ASPIRIN 81 MG ECTAB PO SCH (11:54)
--- NOTE | 2022-04-05 12:57 | Hospitalist Progress Note ---
Date of Service April 05, 2022 Assessment & Plan (1) Encephalopathy acute: Plan: Mostly resolved - most likely hypertensive encephalopathy - Patient presented as a stroke alert with confusion and slurred speech noted on the phone around 9 AM this morning, however family notes patient has been intermittently confused over the past week, therefore LKW unable to be defined. - Given unknown LKW, patient deemed not a candidate for TNKase. - CT head, CTA head/neck unremarkable for acute process such as hemorrhage, infarct, mass. Presentation appeared much more consistent with generalized encephalopathy rather than one area for CVA/TIA Negative extensive workup for infective cause. Blood culture with 1/2 GPC I suspect is contaminant given resolution of symptoms and normal inflammatory markers and WBC Ammonia level normal. No CO2 retention. TSH level normal MRI brain - negative for stroke TTE -no wall motion abnormalities, significant valvular disease. Right ventricular systolic pressure elevated. 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 - PFTs December 2021: No obstructive lung dysfunction, insignificant bronchodilator response, normal TLC with very severe decrease in ERV, mild decrease in DLCO. - Continue home inhalers (of note she is not taking Anoro Ellipta at home). Mucinex, flutter valve as needed. - Continue levocetirizine, Flonase or allergic rhinitis. - Multiple pulmonary nodules being followed pulmonology, 3 mm right middle lobe and 4 mm in left lower lobe, stable since 2014 and per pulm, does not require follow-up. - Ex-smoker, [id number] smoking history quit in 1999. (3) Hypertension: Plan: - Previously on amlodipine, discontinued this 1 month ago due to frequent falls. - BP on arrival 180/83, repeat 177/90. 183/107 during my visit. In setting of possible hypertensive encephalopathy will likely restart amlodipine before discharge as long as she is not orthostatic (4) Hyperlipemia: Plan: - Continue simvastatin (5) Depression: Plan: - Depression with anxiety. - Continue Celexa - very low suspicion of overdose of this (6) GERD (gastroesophageal reflux disease): Plan: - Continue PPI daily, switch omeprazole to pantoprazole per hospital formulary (7) Hypomagnesemia: Plan: - 1.4 on admission. 1 g ordered in ED, additional 2 g ordered for 4. Repeat level tomorrow (8) Hypokalemia: Plan: - 3.3, continue KCL 20 meq BID and recheck in AM. (9) Recurrent falls: Plan: B12 level low, replacement started as below Orthostatics (10) B12 deficiency: Plan: B12 161pg/ml Start cyanocobalamin 1000 mcg IM daily for 3 days then PO daily Plan VTE Prophylaxis - SCDs, Lovenox Diet - heart healthy, easy to chew Code - Full code. Disposition - transfer to med/tele, medically stable for discharge pending placement at this time Admission and Anticipated Discharge Date Admission Date: April 03, 2022 Subjective Reports dizziness last night on going to the bathroom - light headedness rather than room spinning. Otherwise no other dizziness. Significantly orthostatic on BP this morning although standing sBP > 140, she reports not feeling dizzy with this. Review of Systems Review of Systems: All systems reviewed & are unremarkable except as noted in Subjective Physical Exam Constitutional: WD/WN, vitals as above Respiratory: normal respiratory effort and + pursed lip breathing (chronically normal for patient) Auscultation: lungs clear to auscultation bilaterally; no diminished lung sounds, no crackles, no rales, no rhonchi and no wheezes Cardiovascular: RRR, no murmur, no edema Gastrointestinal (Abdomen): normal bowel sounds, soft, nontender, no hepatosplenomegaly Musculoskeletal: no cyanosis or clubbing, extremities motor strength 5/5 Skin: no rashes, warm and dry Neurologic: moves all extremities and awake; no focal motor deficits and not confused Speech / Cognition: normal speech Motor/Sensory: no pronator drift Coordination: normal [id number] test Psychiatric: A+Ox3, euthymic affect Results & Data Results & Data ([facility] [place]) Vital Signs (Past 12 Hours) Vital Signs Temp Pulse Pulse Resp BP Pulse Ox O2 Del Method 04/05/22 11:47 36.5 C 66 16 166/89 H 97 Room Air 04/05/22 07:36 36.8 C 57 L 18 178/77 H 96 Room Air 04/05/22 01:06 53 L PG Care Time/CCT Total # of Minutes Spent Total Time Spent with Patient: Total time spent is greater than 50% in coordination of care (as documented) at patient's floor/unit and/or counseling patient: Coding Level of Care Code 04358 Subseq Hosp Care Lvl 2 Diagnoses Encephalopathy acute G93.40 COPD with emphysema J43.9 Hypertension I10 Hyperlipemia E78.5 Depression F32.9 GERD (gastroesophageal reflux disease) K21.9 Hypomagnesemia E83.42 Hypokalemia E87.6 Recurrent falls R29.6 B12 deficiency E53.8
[2022-04-05] MEDS: ENOXAPARIN INJ 40 MG/0.4 ML SYR SQ SCH (16:47)
[2022-04-05] MEDS: SIMVASTATIN 20 MG TAB PO SCH (20:18)
[2022-04-05] MEDS ORDERED: COUGH DROP (SUGAR FREE) LOZ 24 LOZ/1 BOX BUCCAL PRN (21:30)
[2022-04-06 07:04] LABS: Basophils # (auto) 0.07 K/uL (0-0.2); Basophils % (auto) 1.1 %; Eosinophils # (auto) 0.27 K/uL (0-0.50); Eosinophils % (auto) 4.2 %; Hematocrit (blood only) 36.2 % (34.1-44.9); Hemoglobin 12.2 g/dl (12.0-16.0); Immature Granulocytes # (auto) 0.02 K/uL (0.00-0.02); Immature Granulocytes % (auto) 0.3 %; Lymphocytes # (auto) 2.24 K/uL (1.2-3.4); Lymphocytes % (auto) 35.2 %; Mean Corpuscular Hemoglobin 29.7 pg (25.0-34.0); Mean Corpuscular Hgb Conc 33.7 g/dL (32.0-36.0); Mean Corpuscular Volume 88.1 fL (80.0-100.0); Mean Platelet Volume 8.7 fL (9.4-12.3); Monocytes # (auto) 0.83 K/uL (0.24-0.82); Neutrophils # (auto) 2.94 K/uL (1.4-6.5); Neutrophils % (auto) 46.2 %; Platelet Count 263 K/uL (130-400); RDW Coefficient of Variation 13.2 % (11.5-14.5); RDW Standard Deviation 42.5 fL (36.4-46.3); Red Blood Count 4.11 M/uL (3.93-5.22); White Blood Count 6.37 K/ul (4.8-10.8)
[2022-04-06 07:29] LABS: BUN Creatinine Ratio 11.1 (10-20); Calcium 8.9 mg/dl (8.5-10.1); Creatinine Clr Calc Pharmacy 46.4 ml/min; Est GFR (African American) 70.5 ml/min; Est GFR (Non-African American) 60.8 ml/min; Potassium 4.3 mmol/L (3.5-5.1)
[2022-04-06] MEDS: POTASSIUM CHLORIDE CRTAB 20 MEQ TABCR PO SCH (09:04)
[2022-04-06] MEDS: THIAMINE HCL 100 MG TAB PO SCH (09:05)
[2022-04-06] MEDS: amLODIPine BESYLATE 5 MG TAB PO SCH (09:05)
[2022-04-06] MEDS: PANTOprazole 40 MG TAB PO SCH (09:06)
[2022-04-06] MEDS: CITALOPRAM 20 MG TAB PO SCH (09:06)
[2022-04-06] MEDS: ASPIRIN 81 MG ECTAB PO SCH (09:07)
[2022-04-06] MEDS: CYANOCOBALAMIN 1000 MCG/ML VIAL IM SCH (09:07)
[2022-04-06] MEDS: ENOXAPARIN INJ 40 MG/0.4 ML SYR SQ SCH (17:01)
--- NOTE | 2022-04-06 19:30 | Hospitalist Progress Note ---
Date of Service April 06, 2022 Assessment & Plan (1) Encephalopathy acute: Plan: Mostly resolved - most likely hypertensive encephalopathy - Patient presented as a stroke alert with confusion and slurred speech noted on the phone around 9 AM this morning, however family notes patient has been intermittently confused over the past week, therefore LKW unable to be defined. - Given unknown LKW, patient deemed not a candidate for TNKase. - CT head, CTA head/neck unremarkable for acute process such as hemorrhage, infarct, mass. Presentation appeared much more consistent with generalized encephalopathy rather than one area for CVA/TIA Negative extensive workup for infective cause. Blood culture with 1/2 GPC I suspect is contaminant given resolution of symptoms and normal inflammatory markers and WBC Ammonia level normal. No CO2 retention. TSH level normal MRI brain - negative for stroke TTE - no wall motion abnormalities, significant valvular disease. Right ventricular systolic pressure elevated. 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 - PFTs December 2021: No obstructive lung dysfunction, insignificant bronchodilator response, normal TLC with very severe decrease in ERV, mild decrease in DLCO. - Continue home inhalers (of note she is not taking Anoro Ellipta at home). Mucinex, flutter valve as needed. - Continue levocetirizine, Flonase or allergic rhinitis. - Multiple pulmonary nodules being followed pulmonology, 3 mm right middle lobe and 4 mm in left lower lobe, stable since 2014 and per pulm, does not require follow-up. - Ex-smoker, [id number] smoking history quit in 1999. (3) Hypertension: Plan: - Previously on amlodipine, discontinued this 1 month ago due to frequent falls. - BP on arrival 180/83, repeat 177/90. 183/107 during my visit. In setting of possible hypertensive encephalopathy restarted amlodipine 2.5mg PO daily (4) Hyperlipemia: Plan: - Continue simvastatin (5) Depression: Plan: - Depression with anxiety. - Continue Celexa - very low suspicion of overdose of this (6) GERD (gastroesophageal reflux disease): Plan: - Continue PPI daily, switch omeprazole to pantoprazole per hospital formulary (7) Hypomagnesemia: Plan: Resolved (8) Hypokalemia: Plan: Resolved with supplementation (9) Recurrent falls: Plan: B12 level low, replacement started as below Possible orthostasis however would go by symptoms rather than measurements if deciding to hold amlodipine (10) B12 deficiency: Plan: B12 161pg/ml Start cyanocobalamin 1000 mcg IM daily for 3 days then PO daily Plan VTE Prophylaxis - SCDs, Lovenox Diet - heart healthy, easy to chew Code - Full code. Disposition - continue on med/tele, medically stable for discharge pending placement at this time Admission and Anticipated Discharge Date Admission Date: April 03, 2022 Subjective No acute concerns or questions from patient. Awaiting placement at this time. Review of Systems Review of Systems: All systems reviewed & are unremarkable except as noted in HPI & below Physical Exam Constitutional: WD/WN, vitals as above Respiratory: normal respiratory effort and + pursed lip breathing (chronically normal for patient) Auscultation: lungs clear to auscultation bilaterally; no diminished lung sounds, no crackles, no rales, no rhonchi and no wheezes Cardiovascular: RRR, no murmur, no edema Gastrointestinal (Abdomen): normal bowel sounds, soft, nontender, no hepatosplenomegaly Musculoskeletal: no cyanosis or clubbing, extremities motor strength 5/5 Skin: no rashes, warm and dry Neurologic: moves all extremities and awake; no focal motor deficits and not confused Speech / Cognition: normal speech Psychiatric: A+Ox3, euthymic affect Results & Data Results & Data ([facility]) Vital Signs (Past 12 Hours) Vital Signs Temp Pulse Pulse Resp BP Pulse Ox O2 Del Method 04/06/22 15:00 66 04/06/22 12:00 36.8 C 90 16 130/71 97 Room Air 04/06/22 08:00 58 L PG Care Time/CCT Total # of Minutes Spent Total Time Spent with Patient: Total time spent is greater than 50% in coordination of care (as documented) at patient's floor/unit and/or counseling patient: Coding Level of Care Code 04276 Subseq Hosp Care Lvl 1 Diagnoses Encephalopathy acute G93.40 COPD with emphysema J43.9 Hypertension I10 Hyperlipemia E78.5 Depression F32.9 GERD (gastroesophageal reflux disease) K21.9 Hypomagnesemia E83.42 Hypokalemia E87.6 Recurrent falls R29.6 B12 deficiency E53.8
[2022-04-06] MEDS: SIMVASTATIN 20 MG TAB PO SCH (20:31)
[2022-04-07] MEDS: PANTOprazole 40 MG TAB PO SCH (07:44)
[2022-04-07] MEDS: amLODIPine BESYLATE 5 MG TAB PO SCH (09:13)
[2022-04-07] MEDS: ASPIRIN 81 MG ECTAB PO SCH (09:13)
[2022-04-07] MEDS: CITALOPRAM 20 MG TAB PO SCH (09:13)
[2022-04-07] MEDS: THIAMINE HCL 100 MG TAB PO SCH (09:13)
[2022-04-07] MEDS: UMECLIDINIUM/VILANTEROL 62.5/25MCG 7 PUFFS/INHALER INH SCH (09:14)
[2022-04-07] MEDS: CYANOCOBALAMIN 1000 MCG/ML VIAL IM SCH (09:14)
--- NOTE | 2022-04-07 14:02 | Hospitalist Progress Note ---
Date of Service April 07, 2022 Assessment & Plan (1) Encephalopathy acute: Plan: Mostly resolved - most likely hypertensive encephalopathy - Patient presented as a stroke alert with confusion and slurred speech noted on the phone around 9 AM this morning, however family notes patient has been intermittently confused over the past week, therefore LKW unable to be defined. - Given unknown LKW, patient deemed not a candidate for TNKase. - CT head, CTA head/neck unremarkable for acute process such as hemorrhage, infarct, mass. Presentation appeared much more consistent with generalized encephalopathy rather than one area for CVA/TIA Negative extensive workup for infective cause. Blood culture with 1/2 GPC I suspect is contaminant given resolution of symptoms and normal inflammatory markers and WBC Ammonia level normal. No CO2 retention. TSH level normal MRI brain - negative for stroke TTE - no wall motion abnormalities, significant valvular disease. Right ventricular systolic pressure elevated. PT, OT - recommend rehabilitation, medically stable for discharge at this time - Start thiamine 100mg PO daily and follow up thiamine level as outpatient to see if this can be discontinued - Appreciate neurology recommendations - start daily aspirin + her prior amlodipine dose and monitor for orthostasis (2) Hypertension: Plan: Previously on amlodipine, discontinued this 1 month ago due to frequent falls. - BP on arrival 180/83, repeat 177/90. - In setting of possible hypertensive encephalopathy restarted amlodipine 2.5mg PO daily -> On 04/07, BP better controlled: 120/75 - 140/100. Given amlodipine's relatively slow time to maximum effect, will defer further medication changes yet. (3) COPD with emphysema: Plan: Gold class B/C. PFTs December 2021: No obstructive lung dysfunction, insignificant bronchodilator response, normal TLC with very severe decrease in ERV, mild decrease in DLCO. - Continue home inhalers (of note she is not taking Anoro Ellipta at home). Mucinex, flutter valve as needed. - Continue levocetirizine, Flonase or allergic rhinitis. - Multiple pulmonary nodules being followed pulmonology, 3 mm right middle lobe and 4 mm in left lower lobe, stable since 2014 and per pulm, does not require follow-up. - Ex-smoker, [id number] smoking history quit in 1999. (4) Recurrent falls: Plan: B12 level low, replacement started as below Possible orthostasis however would go by symptoms rather than measurements if deciding to hold amlodipine (5) Hyperlipemia: Plan: - Continue simvastatin (6) Depression: Plan: Depression with anxiety. - Continue Celexa (7) GERD (gastroesophageal reflux disease): Plan: - Continue PPI daily, switch omeprazole to pantoprazole per hospital formulary (8) Hypomagnesemia: Plan: Resolved (9) Hypokalemia: Plan: Resolved with supplementation (10) B12 deficiency: Plan: B12 161pg/ml Start cyanocobalamin 1000 mcg IM daily for 3 days then PO daily Plan VTE Prophylaxis - SCDs, Lovenox Code - Full code. Admission and Anticipated Discharge Date Admission Date: April 03, 2022 Subjective Very pleasant this morning. Working around room to straighten up. Feels well overall. No major issues today. Reports no fevers/chills, chest pain, shortness of breath, abdominal pain, nausea, or vomiting. Physical Exam Constitutional: WD/WN, vitals as above Eyes: EOM intact bilaterally; no conjunctival abnormality ENMT: external ear and nose normal, oropharynx normal Neck: trachea midline, no thyromegaly normal visual inspection Respiratory: normal respiratory effort, lungs clear to auscultation no respiratory distress Cardiovascular: RRR, no murmur, no edema Gastrointestinal (Abdomen): Inspection/Auscultation: abdomen normal to inspection; abdomen not distended Musculoskeletal: no cyanosis or clubbing, extremities motor strength 5/5 Skin: no rashes, warm and dry Neurologic: moves all extremities and awake Psychiatric: Orientation: alert, oriented to person and cooperative Results & Data Results & Data ([facility]) Vital Signs (Past 12 Hours) Vital Signs Temp Pulse Pulse Pulse Resp BP Pulse Ox 04/07/22 11:58 75 142/101 H 04/07/22 11:51 76 147/87 H 04/07/22 11:49 68 120/73 04/07/22 10:50 36.7 C 71 18 145/78 H 96 04/07/22 10:32 04/07/22 07:39 36.6 C 61 18 141/94 H 94 04/07/22 06:51 64 04/07/22 04:06 36.7 C 73 16 141/89 H 94 O2 Del Method 04/07/22 11:58 04/07/22 11:51 04/07/22 11:49 04/07/22 10:50 Room Air 04/07/22 10:32 Room Air 04/07/22 07:39 Room Air 04/07/22 06:51 04/07/22 04:06 Room Air PG Care Time/CCT Total # of Minutes Spent Total Time Spent with Patient: Total time spent is greater than 50% in coordination of care (as documented) at patient's floor/unit and/or counseling patient: Coding Level of Care Code 62839 Subseq Hosp Care Lvl 2 Diagnoses Encephalopathy acute G93.40 Hypertension I10 COPD with emphysema J43.9 Recurrent falls R29.6 Hyperlipemia E78.5 Depression F32.9 GERD (gastroesophageal reflux disease) K21.9 Hypomagnesemia E83.42 Hypokalemia E87.6 B12 deficiency E53.8
[2022-04-07] MEDS: SIMVASTATIN 20 MG TAB PO SCH (17:40)
[2022-04-07] MEDS: ENOXAPARIN INJ 40 MG/0.4 ML SYR SQ SCH (17:40)
[2022-04-08] MEDS: ASPIRIN 81 MG ECTAB PO SCH (07:37)
[2022-04-08] MEDS: THIAMINE HCL 100 MG TAB PO SCH (07:37)
[2022-04-08] MEDS: PANTOprazole 40 MG TAB PO SCH (07:38)
[2022-04-08] MEDS: UMECLIDINIUM/VILANTEROL 62.5/25MCG 7 PUFFS/INHALER INH SCH (07:38)
[2022-04-08] MEDS: CITALOPRAM 20 MG TAB PO SCH (07:38)
[2022-04-08] MEDS: amLODIPine BESYLATE 5 MG TAB PO SCH (07:38)
[2022-04-08] MEDS: CYANOCOBALAMIN (B-12) 500 MCG TABLET PO SCH (07:39)
[2022-04-08] MEDS: ACETAMINOPHEN 325 MG TAB PO PRN (07:41)
--- NOTE | 2022-04-08 16:37 | Hospitalist Progress Note ---
Date of Service April 08, 2022 Assessment & Plan (1) Encephalopathy acute: Plan: Mostly resolved - most likely hypertensive encephalopathy - Patient presented as a stroke alert with confusion and slurred speech noted on the phone around 9 AM this morning, however family notes patient has been intermittently confused over the past week, therefore LKW unable to be defined. - Given unknown LKW, patient deemed not a candidate for TNKase. - CT head, CTA head/neck unremarkable for acute process such as hemorrhage, infarct, mass. Presentation appeared much more consistent with generalized encephalopathy rather than one area for CVA/TIA Negative extensive workup for infective cause. Blood culture with 1/2 GPC I suspect is contaminant given resolution of symptoms and normal inflammatory markers and WBC Ammonia level normal. No CO2 retention. TSH level normal MRI brain - negative for stroke TTE - no wall motion abnormalities, significant valvular disease. Right ventricular systolic pressure elevated. PT, OT - recommend rehabilitation, medically stable for discharge at this time - Appreciate neurology recommendations - start daily aspirin + her prior amlodipine dose and monitor for orthostasis (2) Hypertension: Plan: Previously on amlodipine, discontinued this 1 month ago due to frequent falls. - BP on arrival 180/83, repeat 177/90. - In setting of possible hypertensive encephalopathy restarted amlodipine 2.5mg PO daily -> On 04/07, BP better controlled: 115/75 - 150/80. Continue current dose. (3) COPD with emphysema: Plan: Gold class B/C. PFTs December 2021: No obstructive lung dysfunction, insignificant bronchodilator response, normal TLC with very severe decrease in ERV, mild decrease in DLCO. - Continue home inhalers (of note she is not taking Anoro Ellipta at home). Mucinex, flutter valve as needed. - Continue levocetirizine, Flonase or allergic rhinitis. - Multiple pulmonary nodules being followed pulmonology, 3 mm right middle lobe and 4 mm in left lower lobe, stable since 2014 and per pulm, does not require follow-up. - Ex-smoker, [id number] smoking history quit in 1999. (4) Recurrent falls: Plan: B12 level low, replacement started as below Possible orthostasis however would go by symptoms rather than measurements if deciding to hold amlodipine (5) Hyperlipemia: Plan: - Continue simvastatin (6) Depression: Plan: Depression with anxiety. - Continue Celexa (7) GERD (gastroesophageal reflux disease): Plan: - Continue PPI daily, switch omeprazole to pantoprazole per hospital formulary (8) Hypomagnesemia: Plan: Resolved (9) Hypokalemia: Plan: Resolved with supplementation (10) B12 deficiency: Plan: B12 161pg/ml Start cyanocobalamin 1000 mcg IM daily for 3 days then PO daily Plan VTE Prophylaxis - SCDs, Lovenox Code - Full code. Admission and Anticipated Discharge Date Admission Date: April 03, 2022 Subjective Very pleasant this morning. Feels well. Would like to go to [facility], so hoping to get a bed soon. Reports no fevers/chills, chest pain, shortness of breath, abdominal pain, nausea, or vomiting. Physical Exam Constitutional: WD/WN, vitals as above Eyes: EOM intact bilaterally; no conjunctival abnormality ENMT: external ear and nose normal, oropharynx normal Neck: trachea midline, no thyromegaly normal visual inspection Respiratory: normal respiratory effort, lungs clear to auscultation no respiratory distress Cardiovascular: RRR, no murmur, no edema Gastrointestinal (Abdomen): Inspection/Auscultation: abdomen normal to inspection; abdomen not distended Musculoskeletal: no cyanosis or clubbing, extremities motor strength 5/5 Skin: no rashes, warm and dry Neurologic: moves all extremities and awake Psychiatric: Orientation: alert, oriented to person and cooperative Results & Data Results & Data ([facility]) Vital Signs (Past 12 Hours) Vital Signs Temp Pulse Resp BP Pulse Ox O2 Del Method 04/08/22 15:40 36.8 C 73 18 133/91 94 Room Air 04/08/22 11:51 36.2 C L 63 22 116/73 97 Room Air 04/08/22 07:48 36.9 C 78 20 151/80 H 96 Room Air PG Care Time/CCT Total # of Minutes Spent Total Time Spent with Patient: Total time spent is greater than 50% in coordination of care (as documented) at patient's floor/unit and/or counseling patient: Coding Level of Care Code 18139 Subseq Hosp Care Lvl 2 Diagnoses Encephalopathy acute G93.40 Hypertension I10 COPD with emphysema J43.9 Recurrent falls R29.6 Hyperlipemia E78.5 Depression F32.9 GERD (gastroesophageal reflux disease) K21.9 Hypomagnesemia E83.42 Hypokalemia E87.6 B12 deficiency E53.8
[2022-04-08] MEDS ORDERED: COVID19 BIVALENT Vaccine (Booster ONLY--Pfizer) 30mcg/0.3mL IM ONE (16:45)
[2022-04-08] MEDS: ENOXAPARIN INJ 40 MG/0.4 ML SYR SQ SCH (18:30)
[2022-04-08] MEDS: ALUMINUM/MAGNESIUM SUSP 30 ML UDC PO PRN (20:29)
[2022-04-08] MEDS: SIMVASTATIN 20 MG TAB PO SCH (20:30)
[2022-04-09] MEDS: PANTOprazole 40 MG TAB PO SCH (07:22)
[2022-04-09] MEDS: ASPIRIN 81 MG ECTAB PO SCH (08:08)
[2022-04-09] MEDS: CYANOCOBALAMIN (B-12) 500 MCG TABLET PO SCH (08:08)
[2022-04-09] MEDS: amLODIPine BESYLATE 5 MG TAB PO SCH (08:08)
[2022-04-09] MEDS: CITALOPRAM 20 MG TAB PO SCH (08:09)
[2022-04-09] MEDS: THIAMINE HCL 100 MG TAB PO SCH (08:10)
[2022-04-09] MEDS: UMECLIDINIUM/VILANTEROL 62.5/25MCG 7 PUFFS/INHALER INH SCH (08:10)
[2022-04-09] MEDS: ALUMINUM/MAGNESIUM SUSP 30 ML UDC PO PRN (10:58)
--- NOTE | 2022-04-09 16:52 | Discharge Summary ---
Date of Service April 09, 2022 Admission HPI Per Admitting Provider Yanet Gomez is a 81-year-old female with a past medical history significant for COPD, hypertension, hyperlipidemia, anxiety, depression, and GERD who is presenting today as a stroke alert. Patient not alert to provide history, so it is entirely collected from ED provider and her 2 children at bedside. They report that the patient was on the phone with her sister this morning and who noticed she was slurring her speech and having difficulty communicating. At 1 point, the patient was apparently trying to tell her sister that she lost her vision, unsure if in 1 or both eyes, however was only speak in 1-2 words at a time just seems so severely confused that she called 911. On presentation to the emergency room her deficits include slurred speech and confusion, she is actively moving all 4 extremities and moving from side to side in the bed, with mild tachypnea, can open her eyes and occasionally respond to commands such as raising her arm up. Her son reports he saw her Monday and she was alert and oriented like she typically is, however when it was time for her to drive home instead of getting right in the car, she walked around her van for several loops kicking at the gravel which she noted to be odd, however she drove home and had been well up until this morning. Her daughter, at bedside saw her Monday and noted her to be in her usual state of health. She did recently stopped her bl ood pressure medications a few weeks ago due to history of falls. No prior history of stroke or brain bleed. On presentation to the ED she is hypertensive 180/83, other vital signs within normal limits. CT head, CTA head/neck unremarkable for any evidence of ischemia, hemorrhage, or mass. Labs are largely unremarkable hemoglobin slightly low at 11.6, INR 1.2. Glucose on arrival 106. She is without a white count, marked anemia, deranged coag panel, elevated lipase, liver enzymes, or impaired renal function. Her magnesium, calcium, and potassium are all mildly low. Her UA does not appear infected, she is COVID/flu/RSV negative. Principal Diagnosis Hypertensive urgency, confusion Discharge Exam Constitutional WD/WN, vitals as above Eyes EOM intact bilaterally; no conjunctival abnormality ENMT external ear and nose normal, oropharynx normal Neck trachea midline, no thyromegaly normal visual inspection Respiratory normal respiratory effort, lungs clear to auscultation no respiratory distress Cardiovascular RRR, no murmur, no edema Gastrointestinal (Abdomen) Inspection/Auscultation: abdomen normal to inspection; abdomen not distended Musculoskeletal no cyanosis or clubbing, extremities motor strength 5/5 Skin no rashes, warm and dry Neurologic moves all extremities and awake Psychiatric Orientation: alert, oriented to person and cooperative Discharge Data Allergies Allergy/AdvReac Type Severity Reaction Status Date / Time clarithromycin Allergy Intermediate HIVES Verified 01/17/22 14:59 Penicillins Allergy Intermediate HANDS Verified 01/17/22 14:59 SWELLING lisinopril Allergy Mild Unknown Verified 01/17/22 14:59 Consultations 04/04/22 11:11 Consult Neurology Routine Ordered Studies 04/03/22 10:38 CT angio head w con Stat CT angio neck with con Stat CT head/brain wo con Stat 04/03/22 13:56 CT Abd and Pelvis [CT abd pelvis IV con only] Stat 04/03/22 16:41 MR brain wo con Routine Hospital Course (1) Encephalopathy acute: Mostly resolved - most likely hypertensive encephalopathy - Patient presented as a stroke alert with confusion and slurred speech noted on the phone around 9 AM this morning, however family notes patient has been intermittently confused over the past week, therefore LKW unable to be defined. - Given unknown LKW, patient deemed not a candidate for TNKase. - CT head, CTA head/neck unremarkable for acute process such as hemorrhage, infarct, mass. Presentation appeared much more consistent with generalized encephalopathy rather than one area for CVA/TIA Negative extensive workup for infective cause. Blood culture with 1/2 GPC I suspect is contaminant given resolution of symptoms and normal inflammatory markers and WBC Ammonia level normal. No CO2 retention. TSH level normal MRI brain - negative for stroke TTE - no wall motion abnormalities, significant valvular disease. Right ventricular systolic pressure elevated. PT, OT - recommended rehabilitation, but she did better, and was ready for home with by discharge. Patient and family both wanted her to go home. (2) Hypertension: Previously on amlodipine, discontinued this 1 month ago due to frequent falls. - BP on arrival 180/83, repeat 177/90. - In setting of possible hypertensive encephalopathy restarted amlodipine 2.5mg PO daily -> On 04/07 - 04/09, BP better controlled: 115/75 - 150/80. Continue current dose of amlodipine. 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 PFTs December 2021: No obstructive lung dysfunction, insignificant bronchodilator response, normal TLC with very severe decrease in ERV, mild decrease in DLCO. - Continue home inhalers (of note she is not taking Anoro Ellipta at home). Mucinex, flutter valve as needed. - Continue levocetirizine, Flonase or allergic rhinitis. - Multiple pulmonary nodules being followed pulmonology, 3 mm right middle lobe and 4 mm in left lower lobe, stable since 2014 and per pulm, does not require follow-up. - Ex-smoker, [id number] smoking history quit in 1999. (4) Recurrent falls: B12 level low, replacement started as below (5) Hyperlipemia: - Continue simvastatin (6) Depression: Depression with anxiety. - Continue Celexa (7) GERD (gastroesophageal reflux disease): - Continue PPI daily, switch omeprazole to pantoprazole per hospital formulary (8) Hypomagnesemia: Resolved (9) Hypokalemia: Resolved with supplementation (10) B12 deficiency: B12 161pg/ml Started cyanocobalamin 1000 mcg IM daily for 3 days then PO daily on dicharge. Plan VTE Prophylaxis - SCDs, Lovenox Code - Full code. Total Time Total Time Spent Total Time Spent (In Minutes): 35 Discharge Plan Discharge Items Patient Disposition: Home - Home Health Services Reason For Visit: STROKE ALERT Discharge Diagnosis: Hypertensive urgency Activity: Resume your previous activity Non-emergency contact: Primary Care Provider Call non-emergency contact if: your symptoms worsen Follow-up/Referrals: Janice Escamilla MD [Physician] - 04/11/22 1:30 pm (Please follow up with Dr. Escamilla or any of the [facility] providers as soon as they are able to get you in.) PCP,NO [Primary Care Provider] - Diet: Heart Healthy Addtl Attending Provider Instructions: Ms. Gomez, You were admitted to the hospital for confusion after having an episode of very high blood pressure. We restarted your blood pressure medication, and you are feeling better and your blood pressure is under good control. Your daily blood pressure range is usually 115/70 - 130/80. Your first measurement in the morning is slightly higher, but that is a normal variation through the day that we all have. I would not want ot raise your blood pressure for concern that you would drop too low during the day and get dizzy or pass out. As we discussed, please measure your blood pressure once per day. Sit at the kitchen table or somewhere else you can rest your arm at about the level of your heart. Do something relaxing like a word search or just reading a book for 5 minutes before. Do not drink caffeine right before. Take your blood pressure in one arm, rest for another minute, then take it in the other arm. Gary down the readings and take them to your doctor. You DO NOT need to follow your blood pressure multiple times per day. As above, blood pressures naturally vary, so you will see some higher and some lower. We generally just want the average reading to be <130/90. Please follow up with Dr. Escamilla or any of the [facility] providers as soon as they are able to get you in. If they can't see you soon, please see your PCP before transitioning care to [facility]. Pending Studies at Discharge: No Stand-Alone Forms: My [facility], Smoking Cessation, Medications to Prevent Stroke Medications and DC Order Prescriptions: New cyanocobalamin (vitamin B-12) 1,000 mcg capsule 1,000 mcg PO DAILY Qty: 30 0RF Continued fluticasone propionate [Allergy Relief (fluticasone)] 50 mcg/actuation spray,suspension 1 spray intranasal DAILY Qty: 3 1RF Rx Instructions: administer into each nostril once daily levocetirizine 5 mg tablet 5 mg PO DAILY PRN (Reason: allergy symptoms) Qty: 90 1RF Rx Instructions: Take daily for 10 days then PRN Anoro Ellipta 62.5-25 mcg/actuation blister with device 1 inh inhalation DAILY Qty: 3 1RF albuterol sulfate 90 mcg/actuation HFA aerosol inhaler 2 puff inhalation Q6H PRN (Reason: Shortness Of Breath Or Wheezing) Qty: 18 3RF (DME) Flutter Valve Device See Rx Instructions .MEDSUPPLY Qty: 1 0RF Rx Instructions: Use it every 6 hours when awake. guaifenesin [Mucinex] 600 mg tablet extended release 12hr 600 mg PO BID PRN (Reason: congestion) Qty: 60 1RF Rx Instructions: Take 1 tab p.o. twice a day for 7 days and then as needed citalopram 10 mg Tablet 10 mg PO QAM amlodipine 2.5 mg Tablet 2.5 mg PO QPM simvastatin 20 mg Tablet 40 mg PO PM omeprazole 20 mg Tablet,Delayed Release (Dr/Ec) 20 mg PO QAM Discharge Orders: Discharge Order (Routine); Ordered 04/09/22 Ordered By: Rajat Osorio/Other Patient Handouts: Hypertension Stroke Link, Hypertension Dc Admission Data Admit Date/Time: 04/03/22 12:56 Attending Provider: Rajat Easton Admit Provider: Andrés Cardenas Primary Care Provider: PCP,NO Other [facility] ; Leonarda Reeder [facility] ; Carl Gunderson ; [facility] Other Interventions: Discharge Summary Assessment (RN) Last Done: 04/09/22 12:22 Coding Level of Care Code D/C DAY MANAGEMENT >30 MINS Diagnoses Encephalopathy acute G93.40 Hypertension I10 COPD with emphysema J43.9 Recurrent falls R29.6 Hyperlipemia E78.5 Depression F32.9 GERD (gastroesophageal reflux disease) K21.9 Hypomagnesemia E83.42 Hypokalemia E87.6 B12 deficiency E53.8
== END 2022-04-09 14:30 | disposition home health service (06) | DRG 78 ==
LOC: ED 10:45 → SUATTDRO 12:56 → 2S 12:56